=== PATIENT | female | born 1950 | race American Indian/Alaskan Native ===

== ENCOUNTER 2019-07-26 15:56 | Emergency (ER) | payer MEDICARE ==
--- NOTE | 2019-07-26 16:43 | Emergency Department Report ---
HPI - General Chief Complaint: Psych Time Seen by Provider: 07/26/19 16:24 - HPI HPI: 68-year-old female presents to the emergency department via EMS from the lobby of the psychiatric facility [facility], and before that home, for what appears to be a mental health evaluation/clearance. The patient is currently nonverbal and therefore a poor historian. I have not yet been able to speak with the patient's daughter, but the information obtained through triage appears to be that the patient just recently was diagnosed with bipolar disorder after having some erratic behavior. The daughter took her over to [facility] for evaluation and they were told she needed to come to the emergency department for a medical clearance. ED Past Medical Hx - Past Medical History Previous Medical History?: Yes Hx Diabetes: Yes Hx Psychiatric Treatment: Yes (Recently Bipolar) - Surgical History Past Surgical History?: No - Social History Smoking Status: Unknown if ever smoked Substance Use Type: None - Medications Home Medications: Home Medications Medication Instructions Recorded Confirmed Last Taken Type Nitrofurantoin [place]/M-Cryst 100 mg PO Q12HR #12 capsule 07/27/19 Unknown Rx [Macrobid CAP] ED Review of Systems ROS: Stated complaint: PSYCHOSIS Other details as noted in HPI Comment: Unobtainable due to pts medical conditions Physical Exam - Physical Exam Vital Signs: Vital Signs 07/26/19 16:17 Temperature 97.5 F L Pulse Rate 90 Respiratory 20 Rate Blood Pressure 144/89 [Left] O2 Sat by Pulse 96 Oximetry Physical Exam: GENERAL: The patient is well-developed well-nourished. HENT: Normocephalic. Atraumatic. Patient has moist mucous membranes. EYES: Extraocular motions are intact. NECK: Supple. Trachea is midline. CHEST/LUNGS: Clear to auscultation. There is no respiratory distress noted. HEART/CARDIOVASCULAR: Regular. There is no tachycardia. ABDOMEN: Abdomen is soft, nontender. Patient has normal bowel sounds. There is no abdominal distention. SKIN: Skin is warm and dry. NEURO: The patient is not cooperative and is pretending to be unconscious or catatonic. MUSCULOSKELETAL: There is no obvious deformity. There is no evidence of acute injury. ED Course Vital Signs 07/26/19 16:17 Temperature 97.5 F L Pulse Rate 90 Respiratory 20 Rate Blood Pressure 144/89 [Left] O2 Sat by Pulse 96 Oximetry ED Medical Decision Making - Lab Data Result diagrams: 07/26/19 17:00 07/26/19 17:00 - Radiology Data Radiology results: report reviewed CT BRAIN: 07/26/2019 INDICATION / CLINICAL INFORMATION: AMS. COMPARISON: None available. FINDINGS: BRAIN/INTRACRANIAL STRUCTURES: Unenhanced CT images of the brain demonstrate no evidence of acute intracranial abnormality. Ventricles and sulci are normal in size and shape for a patient of this age. There is no evidence of ischemic injury, hemorrhage, or mass. There are no abnormal extra- axial fluid collections. EXTRACRANIAL STRUCTURES: Unremarkable. IMPRESSION: No acute abnormality. - Medical Decision Making This patient presents for a mental health evaluation. At first the patient a ppeared to be unconscious and/or sedated. However when you tried to open her eyelid she would forcibly keep them closed. She was holding a mask in her mouth and once again showed a lot of strength so that the mask could not be pulled out from in between her teeth. Shortly after this, the patient was seen eyes open spontaneously with extraocular motion intact. She was later heard talking and does display some acute psychosis. For all these reasons the patient was made a 1013. A CT scan of the head without contrast did not show any bleed, shift, mass, ischemia, or any other acute process. The patient's labs are mostly unremarkable except for a mild urinary tract infection. Her vital signs have been stable throughout her ED course thus far. She appears medically cleared for psychiatric placement. Critical Care Time: No Critical care attestation.: If time is entered above; I have spent that time in minutes in the direct care of this critically ill patient, excluding procedure time. ED Disposition Clinical Impression: Acute psychosis UTI (urinary tract infection) Qualifiers: Urinary tract infection type: acute cystitis Hematuria presence: without hematuria Qualified Code(s): N30.00 - Acute cystitis without hematuria Disposition: DC/TX-65 PSY HOSP/PSY UNIT Is pt being admited?: No Condition: Stable Prescriptions: Nitrofurantoin [place]/M-Cryst [Macrobid CAP] 100 mg PO Q12HR #12 capsule Time of Disposition: 00:14
--- NOTE | 2019-07-26 17:10 | Cat Scan Report ---
CT BRAIN: 07/26/2019 INDICATION / CLINICAL INFORMATION: AMS. COMPARISON: None available. FINDINGS: BRAIN/INTRACRANIAL STRUCTURES: Unenhanced CT images of the brain demonstrate no evidence of acute int racranial abnormality. Ventricles and sulci are normal in size and shape for a patient of this age. There is no evidence of ischemic injury, hemorrhage, or mass. There are no abnormal extra-axial fluid collections. EXTRACRANIAL STRUCTURES: Unremarkable. IMPRESSION: No acute abnormality. All CT scans at this location are performed using dose reduction to ALARA by means of automated expos ure control. Signer Name: Herbert Pratt MD Signed: 07/26/2019 5:05 PM Workstation Name: [id number]
[2019-07-26 17:35] LABS: Basophils # (Auto) 0.1 K/mm3 (0.0-0.1); Basophils % (Auto) 1.2 % (0.0-1.8); Eosinophils % (Auto) 0.2 % (0.0-4.3); Hematocrit 38.8 % (30.3-42.9); Hemoglobin 12.1 gm/dl (10.1-14.3); Lymphocytes # (Auto) 1.3 K/mm3 (1.2-5.4); Lymphocytes % (Auto) 12.1 % (13.4-35.0); Mean Corpuscular HGB Conc 31 % (30-34); Mean Corpuscular Volume 72 fl (79-97); Monocytes # (Auto) 0.6 K/mm3 (0.0-0.8); Monocytes % (Auto) 5.6 % (0.0-7.3); Platelet Count 442 K/mm3 (140-440); Red Blood Count 5.38 M/mm3 (3.65-5.03); Red Cell Distribution Width 15.5 % (13.2-15.2)
[2019-07-26 17:55] LABS: BUN/Creatinine Ratio 18; Blood Urea Nitrogen 18 mg/dL (7-17); Calcium 10.6 mg/dL (8.4-10.2); Hemolysis Index 25
[2019-07-26 20:33] LABS: Bilirubin,Urine NEG (Negative); Blood,Urine NEG (Negative); Color,Urine Yellow (Yellow); Mucus,Urine 2+ /HPF; Protein,Urine <15 mg/dL mg/dL (Negative); Urobilinogen,Urine < 2.0 mg/dL (<2.0)
[2019-07-26 20:41] LABS: Amphetamine Screen,Urine PRESUMPTIVE NEGATIVE; Benzodiazepines Screen,Urine PRESUMPTIVE NEGATIVE; Cannabinoid Screen,Urine PRESUMPTIVE NEGATIVE; Cocaine Screen,Urine PRESUMPTIVE NEGATIVE; Methadone Screen,Urine PRESUMPTIVE NEGATIVE; Opiate Screen,Urine PRESUMPTIVE NEGATIVE
[2019-07-26] MEDS: NITROFURANTOIN MONOHYD/M-CRYST 100 MG CAP PO SCH (21:46)
[2019-07-27] MEDS ORDERED: ZIPRASIDONE MESYLATE 20 MG VIAL IM ONE (08:07)
[2019-07-27] MEDS ORDERED: ZIPRASIDONE MESYLATE 20 MG VIAL IM PRN (08:09)
[2019-07-27] MEDS ORDERED: WATER FOR INJ Sterile (PF) 10 ML ONE (08:11)
--- NOTE | 2019-07-27 10:16 | Consultation ---
History of Present Illness - Reason for Consult Consult date: 07/27/19 Reason for consult: Psych eval Requesting physician: FLOR HOWELL - Chief Complaint Chief complaint: I am here for the libertarian - History of Present Psychiatric Illness The patient is a 68-year-old female with history of Bipolar disorder who presents to the emergency department with bizarre and erratic behavior. Patient seen by me this morning. She is alert but very confused and completely disoriented. She states that her name is Dr. Gutierrez and that is here to see if the doctor would invite her to the libertarian. She states that the date today is January 14 1975 and the current [place] president is Mikal Vaz. She denies SI/H/AVH/Paranoia. Of note, UA is suggestive of acute UTI and UDS is negative for all substances screened for. PAST PSYCHIATRIC HISTORY: Unknown PAST MEDICAL HISTORY: Family Psychiatric History None reported or documented SOCIAL HISTORY Cannot be reliably obtained from the patient due to her confusion ROS: Constitutional: Negative for weight loss ENT: Negative for stridor Respiratory: Negative for cough or hemoptysis All other systems reviewed and are negative MENTAL STATUS General Appearance and Behavior: ge appropriate, good eye contact, cooperative with questioning and polite Cooperation: Cooperative Psychomotor Behavior: within normal limits Mood: OK Affect and affective range: Congruent with stated mood Thought Process: Fluent/Logical and Goal-directed Thought Content: Delusions Speech: Normal volume and Regular rate and rhythm Intellectual Functioning Impaired Suicidal Ideation: Denies SI Homicidal Ideation: Denies HI Impulse Control: intact Insight and Judgment: Impaired insight and judgment Memory: Impaired Attention: Normal Orientation: alert but confused DIAGNOSES: Acute delirium due to GMC (UTI) Bipolar disorder, manic episode with psychosis RECOMMENDATIONS MEDICATIONS: Risperidone 0.5mg bid for psychosis and delirium Depakote 500mg bid for mood stabilization One time dose of Lorazepam and Haldol for psychotic arousal Risks, benefits and alternatives of medications discussed with the patient, questions answered and consent obtained from patient. PSYCHOTHERAPY: Supportive psychotherapy provided MEDICAL: Per primary team DELIRIUM PRECAUTIONS: Please re-orient patient frequently, keep lights on during the day, and minimize benzodiazepines and opiates as these medications could worsen patient's confusion. 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 Medications and Allergies Allergies Allergy/AdvReac Type Severity Reaction Status Date / Time Sulfa (Sulfonamide Allergy Rash Verified 07/26/19 19:41 Antibiotics) Home Medications Medication Instructions Recorded Confirmed Last Taken Type Nitrofurantoin [place]/M-Cryst 100 mg PO Q12HR #12 capsule 07/27/19 Unknown Rx [Macrobid CAP] Active Meds: Active Medications Nitrofurantoin Macrocrystals (Macrobid) 100 mg PO Q12HR TETO Last Admin: 07/26/19 21:46 Dose: 100 mg Documented by: Ziprasidone (Geodon) 10 mg IM Q12H PRN PRN Reason: Agitation Mental Status Exam - Vital signs Last Vital Signs Temp 98.5 F 07/27/19 08:20 Pulse 84 07/27/19 08:20 Resp 18 07/27/19 08:20 BP 144/95 07/27/19 08:20 Pulse Ox 99 07/27/19 08:20 Results Result Diagrams: 07/26/19 17:00 07/26/19 17:00 Abnormal lab results 07/26/19 07/26/19 07/26/19 Range/Units 17:00 17:00 20:20 WBC 11.1 H (4.5-11.0) K/mm3 RBC 5.38 H (3.65-5.03) M/mm3 MCV 72 L (79-97) fl MCH 23 L (28-32) pg RDW 15.5 H (13.2-15.2) % Plt Count 442 H (140-440) K/mm3 Lymph % (Auto) 12.1 L (13.4-35.0) % Seg Neutrophils % 80.9 H (40.0-70.0) % Seg Neutrophils # 9.0 H (1.8-7.7) K/mm3 Carbon Dioxide 20 L (22-30) mmol/L BUN 18 H (7-17) mg/dL Glucose 113 H (65-100) mg/dL Calcium 10.6 H (8.4-10.2) mg/dL Urine WBC (Auto) 23.0 H (0.0-6.0) /HPF All other labs normal.
[2019-07-27] MEDS: NITROFURANTOIN MONOHYD/M-CRYST 100 MG CAP PO SCH ×2 (10:31→22:41)
[2019-07-27] MEDS ORDERED: LORazepam 2 MG/ML VIAL IM ONE (12:00)
[2019-07-27] MEDS ORDERED: HALOPERIDOL LACTATE 5 MG/1 ML INJ IM ONE (12:00)
[2019-07-27] MEDS ORDERED: DIVALPROEX DR 250 MG TAB PO SCH (22:00)
[2019-07-27] MEDS: DIVALPROEX DR 500 MG TAB PO SCH (22:30)
[2019-07-27] MEDS: MELATONIN 5 MG TAB PO SCH (22:41)
[2019-07-27] MEDS: risperiDONE 0.25 MG TAB PO SCH (22:41)
[2019-07-28] MEDS: DIVALPROEX DR 500 MG TAB PO SCH ×2 (10:22→22:53)
[2019-07-28] MEDS: risperiDONE 0.25 MG TAB PO SCH ×2 (10:22→22:53)
[2019-07-28] MEDS: NITROFURANTOIN MONOHYD/M-CRYST 100 MG CAP PO SCH ×2 (10:22→22:41)
--- NOTE | 2019-07-28 13:35 | Progress Note ---
Subjective - Reason for Consult Consult date: 07/28/19 Reason for consult: Follow up - Chief Complaint Chief complaint: no new complaints SUBJECTIVE: Patient reviewed this morning. She is alert, oriented to but still confused. She is navarrete that she is at a hospital, states current month and year as August 2019; unable to state the date and day; unaware how she got here and unable to give her social history. She thinks that she lives at: [id number] [address]. She is not able to give a name of who to contact for collateral information. She denies SI/HI/AVH/Paranoia. ROS: Constitutional: Negative for weight loss ENT: Negative for stridor Respiratory: Negative for cough or hemoptysis All other systems reviewed and are negative MENTAL STATUS General Appearance and Behavior: age appropriate, good eye contact, cooperative with questioning and polite Cooperation: Cooperative Psychomotor Behavior: within normal limits Mood: OK Affect and affective range: Congruent with stated mood Thought Process: Fluent/Logical and Goal-directed Thought Content: Delusions Speech: Normal volume and Regular rate and rhythm Intellectual Functioning Impaired Suicidal Ideation: Denies SI Homicidal Ideation: Denies HI Impulse Control: intact Insight and Judgment: Impaired insight and judgment Memory: Impaired Attention: Normal Orientation: alert but confused DIAGNOSES: Acute delirium due to GMC (UTI) Bipolar disorder, manic episode with psychosis RECOMMENDATIONS MEDICATIONS: Risperidone 0.5mg bid for psychosis and delirium Depakote 500mg bid for mood stabilizationl Risks, benefits and alternatives of medications discussed with the patient, questions answered and consent obtained from patient. PSYCHOTHERAPY: Supportive psychotherapy provided MEDICAL: Per primary team DELIRIUM PRECAUTIONS: Please re-orient patient frequently, keep lights on during the day, and minimize benzodiazepines and opiates as these medications could worsen patient's confusion. 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 Mental Status Exam - Vital signs Last Vital Signs Temp 98.4 F 07/28/19 02:10 Pulse 81 07/28/19 02:10 Resp 16 07/28/19 02:10 BP 141/76 07/28/19 02:10 Pulse Ox 98 07/28/19 02:10
[2019-07-28] MEDS: MELATONIN 5 MG TAB PO SCH (22:52)
[2019-07-29] MEDS: risperiDONE 0.25 MG TAB PO SCH (10:25)
[2019-07-29] MEDS: NITROFURANTOIN MONOHYD/M-CRYST 100 MG CAP PO SCH ×2 (10:25→22:41)
[2019-07-29] MEDS: DIVALPROEX DR 500 MG TAB PO SCH ×3 (10:25→20:17)
--- NOTE | 2019-07-29 12:29 | Progress Note ---
Subjective - Reason for Consult Consult date: 07/29/19 Reason for consult: Psych follow up - Chief Complaint Chief complaint: no new complaints SUBJECTIVE: Patient reviewed this morning. She is alert, oriented to but still confused. She is tearful, disorganized and appears to be perplexed this morning. u ROS: Constitutional: Negative for weight loss ENT: Negative for stridor Respiratory: Negative for cough or hemoptysis All other systems reviewed and are negative MENTAL STATUS General Appearance and Behavior: age appropriate, good eye contact, cooperative with questioning and polite Cooperation: Cooperative Psychomotor Behavior: within normal limits Mood: OK Affect and affective range: Congruent with stated mood Thought Process: Fluent/Logical and Goal-directed Thought Content: Delusions Speech: Normal volume and Regular rate and rhythm Intellectual Functioning Impaired Suicidal Ideation: Denies SI Homicidal Ideation: Denies HI Impulse Control: intact Insight and Judgment: Impaired insight and judgment Memory: Impaired Attention: Normal Orientation: alert but confused DIAGNOSES: Acute delirium due to GMC (UTI) Bipolar disorder, manic episode with psychosis RECOMMENDATIONS MEDICATIONS: Increase Risperidone to 1mg bid for psychosis and delirium Increase Depakote to 500mg tid for mood stabilization Risks, benefits and alternatives of medications discussed with the patient, questions answered and consent obtained from patient. PSYCHOTHERAPY: Supportive psychotherapy provided MEDICAL: Per primary team DELIRIUM PRECAUTIONS: Please re-orient patient frequently, keep lights on during the day, and minimize benzodiazepines and opiates as these medications could worsen patient's confusion. GI TECHNICIAN: Yes DISPOSITION: Acute inpatient psychiatric hospitalization when medically stable LEGAL STATUS: 1013 FOLLOW-UP: Will follow Please contact with any questions and/or concerns. Mental Status Exam - Vital signs Last Vital Signs Temp 97.6 F 07/29/19 07:38 Pulse 89 07/29/19 07:38 Resp 20 07/29/19 07:38 BP 142/102 07/29/19 07:38 Pulse Ox 99 07/29/19 07:38
[2019-07-29] MEDS ORDERED: risperiDONE 0.25 MG TAB PO SCH (12:30)
[2019-07-29] MEDS: risperiDONE 1 MG TAB PO SCH (22:42)
[2019-07-29] MEDS: MELATONIN 5 MG TAB PO SCH (22:43)
[2019-07-29 22:46] LABS: Basophils # (Auto) 0.2 K/mm3 (0.0-0.1); Basophils % (Auto) 1.8 % (0.0-1.8); Eosinophils # (Auto) 0.1 K/mm3 (0.0-0.4); Eosinophils % (Auto) 1.2 % (0.0-4.3); Hematocrit 37.6 % (30.3-42.9); Hemoglobin 11.9 gm/dl (10.1-14.3); Lymphocytes # (Auto) 1.9 K/mm3 (1.2-5.4); Lymphocytes % (Auto) 21.4 % (13.4-35.0); Mean Corpuscular HGB Conc 32 % (30-34); Mean Corpuscular Volume 72 fl (79-97); Monocytes # (Auto) 0.6 K/mm3 (0.0-0.8); Monocytes % (Auto) 6.6 % (0.0-7.3); Platelet Count 441 K/mm3 (140-440); Red Cell Distribution Width 14.9 % (13.2-15.2)
[2019-07-29 23:10] LABS: Alanine Aminotransferase 14 units/L (7-56); Albumin 4.3 g/dL (3.9-5); BUN/Creatinine Ratio 22; Blood Urea Nitrogen 20 mg/dL (7-17); Calcium 9.5 mg/dL (8.4-10.2); Hemolysis Index 6
[2019-07-30] MEDS: NITROFURANTOIN MONOHYD/M-CRYST 100 MG CAP PO SCH (11:01)
[2019-07-30] MEDS: risperiDONE 1 MG TAB PO SCH (11:01)
[2019-07-30] MEDS: DIVALPROEX DR 500 MG TAB PO SCH (11:01)
[2019-07-30 11:21] VITALS: BP 116/80
== END 2019-07-30 14:17 ==
LOC: EEVIPCON 15:56 → ED 15:56
DX: F23 Brief psychotic disorder (principal); N39.0 Urinary tract infection, site not specified; E11.9 Type 2 diabetes mellitus without complications; F31.9 Bipolar disorder, unspecified; Z88.2 Allergy status to sulfonamides; Z79.899 Other long term (current) drug therapy
CPT/HCPCS: 36415; 70450; 80048; 80053; 80307; 81001; 82140; 82962; 84443; 85025; 87086; 96372; 99285; J3486; 80320; G0480

== ENCOUNTER 2020-07-20 20:23 | Emergency (ER) | payer MEDICARE ==
[2020-07-20 22:42] LABS: Basophils # (Auto) 0.1 K/mm3 (0.0-0.1); Eosinophils # (Auto) 0.1 K/mm3 (0.0-0.4); Eosinophils % (Auto) 0.6 % (0.0-4.3); Hematocrit 38.7 % (30.3-42.9); Hemoglobin 12.3 gm/dl (10.1-14.3); Lymphocytes # (Auto) 2.1 K/mm3 (1.2-5.4); Lymphocytes % (Auto) 19.9 % (13.4-35.0); Mean Corpuscular HGB Conc 32 % (30-34); Mean Corpuscular Volume 75 fl (79-97); Monocytes # (Auto) 0.6 K/mm3 (0.0-0.8); Monocytes % (Auto) 5.7 % (0.0-7.3); Platelet Count 419 K/mm3 (140-440); Red Blood Count 5.14 M/mm3 (3.65-5.03); Red Cell Distribution Width 14.3 % (13.2-15.2)
[2020-07-20] MEDS ORDERED: cloNIDine 0.2 MG TAB PO ONE (22:53)
--- NOTE | 2020-07-20 22:54 | Emergency Department Report ---
HPI - General Chief Complaint: Psych Time Seen by Provider: 07/20/20 22:43 - HPI HPI: Room 16 A The patient is a 69-year-old female brought into the hospital with a chief complaint of "psychotic episode." The patient daughter reports the patient is having a psychotic episode. The patient states she was brought in because her said "I was getting on his nerves." She states that her called her children to take her to the hospital because she was doing things to aggravate him including spilling ink on the floor. Patient denies suicidal homicidal ideation. Patient denies visual or auditory hallucinations. When asked how she is feeling right now the patient states she feels "perfect." ED Past Medical Hx - Past Medical History Previous Medical History?: Yes Hx Diabetes: Yes Hx Psychiatric Treatment: Yes (Recently Bipolar) - Surgical History Past Surgical History?: No - Family History Family history: no significant - Social History Smoking Status: Never Smoker Substance Use Type: None (Denies illicit drug use) - Medications Home Medications: Home Medications Medication Instructions Recorded Confirmed Last Taken Type Divalproex ER [Depakote ER] 500 mg PO BID 30 Days #60 tablet 08/05/19 Unknown Rx risperiDONE [RisperDAL] 2 mg PO BID 30 Days #60 tablet 08/05/19 Unknown Rx traZODone [Desyrel] 50 mg PO QHS PRN #30 tablet 08/05/19 Unknown Rx ED Review of Systems ROS: Stated complaint: MH EVAL Other details as noted in HPI Constitutional: no symptoms reported Eyes: denies: eye pain ENT: denies: throat pain Respiratory: no symptoms reported Cardiovascular: denies: chest pain Endocrine: no symptoms reported Gastrointestinal: denies: abdominal pain Genitourinary: denies: dysuria Musculoskeletal: denies: back pain Neurological: denies: headache Psychiatric: denies: auditory hallucinations, visual hallucinations, homicidal thoughts, suicidal thoughts Physical Exam - Physical Exam Vital Signs: Vital Signs 07/20/20 21:46 Temperature 98.7 F Pulse Rate 103 H Respiratory 22 Rate Blood Pressure 197/110 [Right] O2 Sat by Pulse 97 Oximetry Physical Exam: GENERAL: The patient is well-developed well-nourished female sitting in chair not appearing to be in acute distress. [] HEENT: Normocephalic. Atraumatic. Extraocular motions are intact. Patient has moist mucous membranes. NECK: Supple. Trachea midline CHEST/LUNGS: Clear to auscultation. There is no respiratory distress noted. HEART/CARDIOVASCULAR: Regular. There is no tachycardia. There is no gallop rub or murmur. ABDOMEN: Abdomen is soft, nontender. Patient has normal bowel sounds. There is no abdominal distention. SKIN: There is no rash. There is no edema. There is no diaphoresis. NEURO: The patient is awake, alert, and oriented. The patient is cooperative. The patient has normal speech MUSCULOSKELETAL: There is no evidence of acute injury. ED Course Vital Signs 07/20/20 21:46 Temperature 98.7 F Pulse Rate 103 H Respiratory 22 Rate Blood Pressure 197/110 [Right] O2 Sat by Pulse 97 Oximetry ED Medical Decision Making - Lab Data Result diagrams: 07/20/20 22:14 - Differential Diagnosis Bipolar disorder Critical care attestation.: If time is entered above; I have spent that time in minutes in the direct care of this critically ill patient, excluding procedure time. ED Disposition Condition: Stable
[2020-07-20 23:01] LABS: BUN/Creatinine Ratio 23; Blood Urea Nitrogen 16 mg/dL (7-17); Calcium 10.7 mg/dL (8.4-10.2); Hemolysis Index 2
--- NOTE | 2020-07-21 10:51 | Consultation ---
History of Present Illness - Reason for Consult Consult date: 07/21/20 Reason for consult: Psychosis - History of Present Psychiatric Illness Per ED Note: The patient is a 69-year-old female brought into the hospital with a chief complaint of "psychotic episode." The patient daughter reports the patient is having a psychotic episode. The patient states she was brought in because her said "I was getting on his nerves." She states that her hus band called her children to take her to the hospital because she was doing things to aggravate him including spilling ink on the floor. Patient denies suicidal homicidal ideation. Patient denies visual or auditory hallucinations. When asked how she is feeling right now the patient states she feels "perfect." During my assessment of 69y/o Symone Philip she has her head covered up with linen. She would not remove it. I had to physically remove it. The patient responded "this is your house. Do what you want." She then says "I'm just a guest." It is hard to tell what is going on with the patient. She is sarcastic at times and doesn't answer some questions directly. Her thoughts also appear to be somewhat disorganized. The patient says "I got bit by a pool of ants" when asked why was she brought to the hospital. When asked about hallucinations, she first replies "yes." When asking her what were the hallucinations, she states "I can't hear you." She then pulls on her ear. When asking the patient again, she says "there you go. That's what you said. I didn't say that." When asking the patient about SI/HI, the patient replies "you are talking low again. I can't hear you talking all of that." The patient denies ay past psychiatric history. PAST PSYCHIATRIC HISTORY: Diagnoses: Denies Suicide attempts or Self-harm behavior: Denies Prior psychiatric hospitalizations: Denies Substance Abuse history: Denies Previous psychiatric medications tried: Denies Outpatient treatment: Denies PAST MEDICAL HISTORY: None reported Family Psychiatric History: None reported or documented SOCIAL HISTORY Marital Status: Living Arrangements: with her spouse Employment Status: Disabled Access to guns/weapons: Denies Education: high school History of Abuse: Denies Legal History: Denies REVIEW OF SYSTEMS Constitutional: Negative for weight loss ENT: Negative for stridor Respiratory: Negative for cough or hemoptysis All other systems reviewed and are negative MENTAL STATUS EXAMINATION General Appearance and Behavior: Age appropriate, good hygiene, not wearing appropriate clothes, poor eye contact, polite with questioning. Cooperation: Participating, uncooperative at times Psychomotor Behavior: Psychomotor normal Mood: "okay" Affect and affective range: Congruent with stated mood Thought Process: illogical Speech: Normal tone and pace, nonsensical Thought Content Suicidal Ideation: Denies Homicidal Ideation: Denies Hallucinations: unclear Delusions: None elicited Impulse Control: Limited Insight and Judgment: Impaired insight and judgment Memory: Limited Attention: Divided attention impaired Orientation: A/o x 3 Assessment and Plan (1) Bipolar Current Visit: Yes Status: Acute Treatment Plan 1013 Start Risperidone 0.5mg po BID Start Depakote DR 250mg po BID Start Trazodone 50mg po qhs Sitter: Defer to primary Medical: Per primary Disposition: Recommend acute psychiatric inpatient Will follow. Thank you for this consult. Case staffed with Dr. Yao. Medications and Allergies Allergies Allergy/AdvReac Type Severity Reaction Status Date / Time Sulfa (Sulfonamide Allergy Rash Verified 07/26/19 19:41 Antibiotics) Home Medications Medication Instructions Recorded Confirmed Last Taken Type Divalproex ER [Depakote ER] 500 mg PO BID 30 Days #60 tablet 08/05/19 Unknown Rx risperiDONE [RisperDAL] 2 mg PO BID 30 Days #60 tablet 08/05/19 Unknown Rx traZODone [Desyrel] 50 mg PO QHS PRN #30 tablet 08/05/19 Unknown Rx Mental Status Exam - Vital signs Last Vital Signs Temp 98.5 F 07/21/20 06:25 Pulse 85 07/21/20 06:25 Resp 20 07/21/20 06:25 BP 134/86 07/21/20 06:25 Pulse Ox 98 07/21/20 06:25 Results Result Diagrams: 07/20/20 22:14 07/20/20 22:14 Abnormal lab results 07/20/20 07/20/20 07/20/20 Range/Units 22:14 22:14 22:14 RBC (3.65-5.03) M/mm3 MCV (79-97) fl MCH (28-32) pg Seg Neutrophils % (40.0-70.0) % Seg Neutrophils # (1.8-7.7) K/mm3 Glucose 112 H (65-100) mg/dL Calcium 10.7 H (8.4-10.2) mg/dL Salicylates < 0.3 L (2.8-20.0) mg/dL Acetaminophen 5.0 L (10.0-30.0) ug/mL Valproic Acid (50-100) ug/mL 07/20/20 07/20/20 Range/Units 22:14 22:14 RBC 5.14 H (3.65-5.03) M/mm3 MCV 75 L (79-97) fl MCH 24 L (28-32) pg Seg Neutrophils % 72.8 H (40.0-70.0) % Seg Neutrophils # 7.8 H (1.8-7.7) K/mm3 Glucose (65-100) mg/dL Calcium (8.4-10.2) mg/dL Salicylates (2.8-20.0) mg/dL Acetaminophen (10.0-30.0) ug/mL Valproic Acid < 2.8 L (50-100) ug/mL All other labs normal.
[2020-07-21] MEDS: risperiDONE 0.25 MG TAB PO SCH ×2 (13:53→23:05)
[2020-07-21] MEDS: DIVALPROEX DR 125 MG TAB PO SCH ×2 (13:53→23:05)
[2020-07-21] MEDS: traZODone 50 MG TAB PO SCH (23:05)
--- NOTE | 2020-07-22 09:22 | Progress Note ---
Subjective - Reason for Consult Consult date: 07/22/20 Reason for consult: psychosis - Chief Complaint Chief complaint: Per ED Note: Attempted to collect a covid test from pt. Pt flat refuses. Pt then opened her milk carton and dumped in on the floor and stated she's not eating her breakfast. Breakfast discarded and HK cleaned milk mess. The patient was seen today, she is sitting up with her head covered with her linen. She does not remove it nor answer me when I initially try and speak with her. I remove it to speak with her. She doesn't cooperate much during the interview. She is somewhat paranoid. The patient denies SI/HI or hallucinations of any kind. She says "I'm not inferior." When asking what did she mean by that, she smiles and says "I can't hear you." When asked how did she feel, she leans forward and whispers "wonderful." REVIEW OF SYSTEMS Constitutional: Negative for weight loss ENT: Negative for stridor Respiratory: Negative for cough or hemoptysis All other systems reviewed and are negative MENTAL STATUS EXAMINATION General Appearance and Behavior: Age appropriate, good hygiene, not wearing appropriate clothes, poor eye contact, polite with questioning. Cooperation: Participating, uncooperative at times Psychomotor Behavior: Psychomotor normal Mood: "wonderful" Affect and affective range: Congruent with stated mood Thought Process: illogical Speech: Normal tone and pace, nonsensical Thought Content Suicidal Ideation: Denies Homicidal Ideation: Denies Hallucinations: unclear Delusions: paranoid Impulse Control: Limited Insight and Judgment: Impaired insight and judgment Memory: Limited Attention: Divided attention impaired Orientation: A/o x 3 Assessment and Plan (1) Bipolar Current Visit: Yes Status: Acute Treatment Plan 1013 Increased Risperidone 1mg po BID Increased Depakote DR 250mg po BID Continue Trazodone 50mg po qhs Sitter: Defer to primary Medical: Per primary Disposition: Recommend acute psychiatric inpatient Will follow. Thank you for this consult. Case staffed with Dr. Yao. Mental Status Exam - Vital signs Last Vital Signs Temp 98.6 F 07/21/20 11:09 Pulse 93 H 07/21/20 11:09 Resp 18 07/21/20 22:00 BP 140/83 07/21/20 11:09 Pulse Ox 97 07/21/20 11:09
[2020-07-22] MEDS ORDERED: ZIPRASIDONE MESYLATE 20 MG VIAL IM PRN (11:47)
[2020-07-22] MEDS: DIVALPROEX DR 250 MG TAB PO SCH ×2 (12:44→23:01)
[2020-07-22] MEDS: risperiDONE 1 MG TAB PO SCH ×2 (12:44→23:01)
[2020-07-22] MEDS: traZODone 50 MG TAB PO SCH (23:01)
--- NOTE | 2020-07-23 10:25 | Progress Note ---
Subjective - Reason for Consult Consult date: 07/23/20 Reason for consult: psychosis - Chief Complaint Chief complaint: Per Nurse Note: Asked pt if she would allow me to do a Covid test on her. Pt states no because she had just had one done at her congregational. And further states no because it is against her confucianist. The patient was seen today, she is more calm and cooperative during this assessment. She actually removes linen off her head in order to speak to me. The patient says she's doing "fine, after I saw your kimberly face." She is smiling. She denies hallucinations of any kind. She also denies SI/HI. She says she slept well. The patient is over head cursing the nurse and angry about the COVID test. When I ask her about it, she says "it's against my confucianist. I don't know why they keep asking me to take that. I'm not taking a COVID test." She says "they can get away from me with that." Spoke with the patient's daughter, Margaret. She says the patient painted the kitchen cabinets, wandered and got lost, urinating on herself, and is angry and lashes out. The daughter says the patient will be calm one minute, and lash out the next. She says if she's not having a psychotic break, she is "very sweet, cooperative and nice." She says the behaviors her mother is exhibiting is not her normal self. She says she found out yesterday that her mother dismissed her psychiatrist and stopped her medication from him, and says the psychiatrist says he hasn't written any scripts since January. REVIEW OF SYSTEMS Constitutional: Negative for weight loss ENT: Negative for stridor Respiratory: Negative for cough or hemoptysis All other systems reviewed and are negative MENTAL STATUS EXAMINATION General Appearance and Behavior: Age appropriate, good hygiene, not wearing appropriate clothes, good eye contact, polite with questioning. Cooperation: Participating, uncooperative at times Psychomotor Behavior: Psychomotor normal Mood: "fine" Affect and affective range: Congruent with stated mood Thought Process: illogical Speech: Normal tone and pace, nonsensical Thought Content Suicidal Ideation: Denies Homicidal Ideation: Denies Hallucinations: unclear Delusions: paranoid Impulse Control: Limited Insight and Judgment: Impaired insight and judgment Memory: Limited Attention: Divided attention impaired Orientation: A/o x 3 Assessment and Plan (1) Bipolar Current Visit: Yes Status: Acute Treatment Plan 1013 Continue Risperidone 1mg po BID Continue Depakote DR 250mg po BID Continue Trazodone 50mg po qhs Sitter: Defer to primary Medical: Per primary Disposition: Recommend acute psychiatric inpatient Will follow. Thank you for this consult. Case staffed with Dr. Yao. Mental Status Exam - Vital signs Last Vital Signs Temp 98.7 F 07/22/20 20:08 Pulse 96 H 07/22/20 20:08 Resp 16 07/22/20 22:49 BP 147/93 07/22/20 20:08 Pulse Ox 99 07/22/20 22:49
[2020-07-23] MEDS: DIVALPROEX DR 250 MG TAB PO SCH (11:34)
[2020-07-23] MEDS: risperiDONE 1 MG TAB PO SCH (11:34)
[2020-07-23 11:44] VITALS: BP 121/85
== END 2020-07-23 13:31 ==
LOC: ED 20:23
DX: F29 Unspecified psychosis not due to a substance or known physiological condition (principal); E11.9 Type 2 diabetes mellitus without complications; F31.9 Bipolar disorder, unspecified; Z79.899 Other long term (current) drug therapy; Z88.2 Allergy status to sulfonamides
CPT/HCPCS: 36415; 80048; 80164; 80320; 85025; G0480

== ENCOUNTER 2020-07-23 13:41 | Inpatient (IN) | payer MEDICARE ==
[2020-07-23] MEDS ORDERED: ZIPRASIDONE MESYLATE 20 MG VIAL IM PRN (15:22)
[2020-07-23] MEDS: traZODone 50 MG TAB PO SCH (21:16)
--- NOTE | 2020-07-24 08:04 | Consultation ---
History of Present Illness - Reason for Consult Consult date: 07/24/20 Reason for consult: aggressive - History of Present Psychiatric Illness Per ED Note: The patient is a 69-year-old female brought into the hospital with a chief complaint of "psychotic episode." The patient daughter reports the patient is having a psychotic episode. The patient states she was brought in because her said "I was getting on his nerves." She states that her hu maile called her children to take her to the hospital because she was doing things to aggravate him including spilling ink on the floor. Patient denies suicidal homicidal ideation. Patient denies visual or auditory hallucinations. When asked how she is feeling right now the patient states she feels "perfect." Per Admission Note: Patient is labile. She was observed acting like she was stuffing something in her clothes. Patient stated "I was putting my mk in there". Patient is uncooperative and refusing vs at first. Her clothes and blankets were soaked in urine. Symone Philip is a 69y/o female patient who I first started treatment on in the ER. During my assessment in the ER she had her head covered up with linen. She would not remove it. I had to physically remove it. The patient responded "this is your house. Do what you want." She then stated "I'm just a guest." It was hard to tell what is going on with the patient. She was sarcastic at times and didn't answer some questions directly. Her thoughts were somewhat disorganized. The patient stated "I got bit by a pool of ants" when asked why was she brought to the hospital. When asked about hallucinations, she first replied "yes." When asking her what were the hallucinations, she stated "I can't hear you." She then pulled on her ear. When asking the patient again, she said "there you go. That's what you said. I didn't say that." During my interview with the patient today on [facility], she is lying in bed awake. The tech is also at bedside instructing her to get up for breakfast. The patient is guarded. She appears suspicious. She is quickly looking back and forth at me and the tech. The patient then starts looking around the room. She then stares at me strangely. When asking the patient if she remembered me, she then seemed to be a little more at ease. She replies, "yea, I remember you." She denies SI/HI or hallucinations. PAST PSYCHIATRIC HISTORY: Diagnoses: Denies Suicide attempts or Self-harm behavior: Denies Prior psychiatric hospitalizations: Denies Substance Abuse history: Denies Previous psychiatric medications tried: Denies Outpatient treatment: Denies PAST MEDICAL HISTORY: None reported Family Psychiatric History: None reported or documented SOCIAL HISTORY Marital Status: Living Arrangements: with her spouse Employment Status: Disabled Access to guns/weapons: Denies Education: high school History of Abuse: Denies Legal History: Denies REVIEW OF SYSTEMS Constitutional: Negative for weight loss ENT: Negative for stridor Respiratory: Negative for cough or hemoptysis All other systems reviewed and are negative MENTAL STATUS EXAMINATION General Appearance and Behavior: Age appropriate, good hygiene, not wearing appropriate clothes, poor eye contact, suspicious Cooperation: Participating, uncooperative at times Psychomotor Behavior: Psychomotor normal Mood: "okay" Affect and affective range: Congruent with stated mood Thought Process: illogical Speech: Normal tone and pace, nonsensical Thought Content Suicidal Ideation: Denies Homicidal Ideation: Denies Hallucinations: unclear Delusions: None elicited Impulse Control: Limited Insight and Judgment: Impaired insight and judgment Memory: Limited Attention: Divided attention impaired Orientation: A/o x 3 Assessment and Plan (1) Bipolar Disorder Current Visit: Yes Status: Acute Treatment Plan Patient admitted for inpatient psychiatric evaluation, medication adjustment and close monitoring The patient's behavior, mood, sleep and appetite will be closely monitored. Patient enrolled in individual and group therapeutic sessions and encouraged to attend. Patient provided with a safe and structured environment. Patient's physical health needs will be addressed by the Hospitalist. Hospitalist Consulted Labs including CBC, CMP, Lipid profile and Hemoglobin A1C levels ordered for baseline reference Social Assessment will be completed and the Child Care Teacher will work with patient and family to ensure a suitable and safe disposition Medication adjustment will be made as clinically indicated Risperidone 1mg po BID Depakote DR 250mg po BID Trazodone 50mg po qhs Usual Wellness Tenriism/Preservation: - Start Trazodone 50 mg po QHS & 50 mg po QHS PRN between 10 PM & 2 AM for insomnia - Start Melatonin 5 mg po QHS to promote circadian rhythm - Start [place]-3 for brain health, reduce impulsivity, and as adjunctive treatment for mood disorder, continue upon discharge given overall benefits. - Start B1 prophylaxis with 200 mg po for 5 days The patient agreed on the treatment plan, understood the risk, benefit, alternative treatment, potential consequence of no treatment, and gave informed consent. Initial Certification I certify that the inpatient psychiatric services are required for treatment that could reasonably be expected to improve the patient's condition for agitation and psychosis Estimated days: 5 Post hospital care: primary care provider, psychiatric provider Case staffed with Dr. Yao. Medications and Allergies Allergies Allergy/AdvReac Type Severity Reaction Status Date / Time Sulfa (Sulfonamide Allergy Rash Verified 07/26/19 19:41 Antibiotics) Home Medications Medication Instructions Recorded Confirmed Last Taken Type traZODone [Desyrel] 50 mg PO QHS PRN #30 tablet 08/05/19 07/23/20 Unknown Rx Divalproex ER [Depakote ER] 250 mg PO BID 07/23/20 07/23/20 Unknown History risperiDONE [RisperDAL] 1 mg PO BID 07/23/20 07/23/20 Unknown History Active Meds: Active Medications Trazodone HCl (Trazodone 50 Mg Tab) 50 mg PO QHS [facility] Last Admin: 07/23/20 21:16 Dose: 50 mg Documented by: Ziprasidone (Ziprasidone Mesylate 20 Mg Vial) 10 mg IM Q4H PRN PRN Reason: Agitation Mental Status Exam - Vital signs Last Vital Signs Temp Pulse 114 H 07/23/20 18:23 Resp BP 160/105 07/23/20 18:23 Pulse Ox 98 07/23/20 18:23 Results Abnormal lab results 07/23/20 Range/Units 18:35 POC Glucose 126 H (70-105) mg/dL All other labs normal.
[2020-07-24] MEDS: risperiDONE 1 MG TAB PO SCH ×2 (09:59→21:37)
[2020-07-24] MEDS: DIVALPROEX DR 250 MG TAB PO SCH ×2 (09:59→21:37)
--- NOTE | 2020-07-24 12:05 | Consultation ---
History of Present Illness - Reason for Consult Consult date: 07/24/20 Medical consult Requesting physician: RICK GREENWOOD - History of Present Illness 69-year-old female patient was admitted through emergency room with history of psychotic episode as reported by the daughter Patient was admitted to [facility] by psychiatrist after evaluation, for further management Hospitalist services were requested for medical consult. When I evaluated the patient patient is comfortable pleasant smiling Responding enthusiastically to all the questions Patient denies any chest pain or shortness of breath Denies any headache dizziness weakness or numbness No nausea vomiting or abdominal pain Patient denies any history of hypertension or diabetes mellitus Past History Past Medical History: diabetes (However blood sugars are in the normal range), other (Bipolar) Past Surgical History: No surgical history Social history: denies: smoking, alcohol abuse, prescription drug abuse Family history: no significant family history Medications and Allergies Allergies Allergy/AdvReac Type Severity Reaction Status Date / Time Sulfa (Sulfonamide Allergy Rash Verified 07/26/19 19:41 Antibiotics) Home Medications Medication Instructions Recorded Confirmed Last Taken Type traZODone [Desyrel] 50 mg PO QHS PRN #30 tablet 08/05/19 07/23/20 Unknown Rx Divalproex ER [Depakote ER] 250 mg PO BID 07/23/20 07/23/20 Unknown History risperiDONE [RisperDAL] 1 mg PO BID 07/23/20 07/23/20 Unknown History Active Meds: Active Medications Divalproex Sodium (Divalproex Dr 250 Mg Tab) 250 mg PO BID [facility] Last Admin: 07/24/20 09:59 Dose: 250 mg Documented by: Risperidone (Risperidone 1 Mg Tab) 1 mg PO BID [facility] Last Admin: 07/24/20 09:59 Dose: 1 mg Documented by: Trazodone HCl (Trazodone 50 Mg Tab) 50 mg PO QHS [facility] Last Admin: 07/23/20 21:16 Dose: 50 mg Documented by: Trazodone HCl (Trazodone 50 Mg Tab) 50 mg PO QHS PRN PRN Reason: insomnia Ziprasidone (Ziprasidone Mesylate 20 Mg Vial) 10 mg IM Q4H PRN PRN Reason: Agitation Review of Systems Constitutional: no fever, no chills, no fatigue, no weakness Ears, nose, mouth and throat: no nasal congestion, no nasal discharge Cardiovascular: no chest pain, no orthopnea, no shortness of breath Respiratory: no cough, no shortness of breath Gastrointestinal: no abdominal pain, no nausea, no vomiting Genitourinary Female: no dysuria, no urinary frequency, no hematuria Musculoskeletal: no myalgias, no arthritis Integumentary: no rash, no lesions Neurological: no weakness, no numbness, no seizures, no syncope Psychiatric: other, no anxiety, no depression Endocrine: no cold intolerance, no heat intolerance Hematologic/Lymphatic: no easy bruising, no easy bleeding Allergic/Immunologic: no urticaria, no allergic rhinitis Exam - Constitutional Vitals: Temp Pulse Resp BP Pulse Ox 114 H 160/105 98 07/23/20 18:23 07/23/20 18:23 07/23/20 18:23 General appearance: Present: no acute distress, well-nourished, obese - EENT Eyes: Present: PERRL, EOM intact - Neck Neck: Present: supple, normal ROM - Respiratory Respiratory: bilateral: diminished, negative: rales, rhonchi, wheezing - Cardiovascular Rhythm: regular Heart Sounds: Present: S1 & S2 - Extremities Extremities: no ischemia, No edema - Abdominal General gastrointestinal: Present: soft, non-tender, non-distended, normal bowel sounds - Integumentary Integumentary: Present: clear, warm - Musculoskeletal Musculoskeletal: strength equal bilaterally, generalized weakness - Psychiatric Psychiatric: appropriate mood/affect, cooperative - Neurologic Neurologic: moves all extremities Results - Labs Labs: Abnormal lab results 07/23/20 Range/Units 18:35 POC Glucose 126 H (70-105) mg/dL Assessment and Plan --Acute psychosis; Management per psych Supportive care --History of diabetes mellitus; Blood sugars are within normal range Closely monitor --Obesity; BMI 37.1 Patient needs weight reduction when medically stable --DVT prophylaxis; SCDs while resting Increase ambulation We will closely monitor the patient and adjust the management as needed Thank you for this consultation We will follow the patient along with you as needed Call us with questions or concerns Plan of care reviewed with the patient and her nurse
[2020-07-24] MEDS: traZODone 50 MG TAB PO SCH (21:38)
[2020-07-24] MEDS ORDERED: traZODone 50 MG TAB PO PRN (22:00)
--- NOTE | 2020-07-25 09:17 | Progress Note ---
Subjective Date of service: 07/25/20 Principal diagnosis: Bipolar Subjective Comment: The patient was seen this morning. She appears cheerful and in a great temperament seating on her bed. She says " she is doing well and feels great but i am considering something; I let somebody to remain in my home that I should not do. She was keeping quite between the conversation and said " it is not good to let somebody know your personal issues". She reported her good sleep last night and has a good appetite. Currently, patient denies panic attacks, recurrent nightmares or flashbacks. She denies paranoia, thought interference and no features suggestive of hypomania or amanuel . Also, denies SI/HI or hallucinations of any kind PAST PSYCHIATRIC HISTORY: Diagnoses: Denies Suicide attempts or Self-harm behavior: Denies Prior psychiatric hospitalizations: Denies Substance Abuse history: Denies Previous psychiatric medications tried: Denies Outpatient treatment: Denies PAST MEDICAL HISTORY: None reported Family Psychiatric History: None reported or documented SOCIAL HISTORY Marital Status: Living Arrangements: with her spouse Employment Status: Disabled Access to guns/weapons: Denies Education: high school History of Abuse: Denies Legal History: Denies REVIEW OF SYSTEMS Constitutional: Negative for weight loss ENT: Negative for stridor Respiratory: Negative for cough or hemoptysis All other systems reviewed and are negative MENTAL STATUS EXAMINATION General Appearance and Behavior: Age appropriate, good hygiene, wearing ap propriate clothes, and has good eye contact. Cooperation: Participating and cooperative Psychomotor Behavior: Psychomotor normal Mood: "good" Affect and affective range: Congruent with stated mood Thought Process: illogical Speech: Normal tone and pace, nonsensical Thought Content Suicidal Ideation: Denies Homicidal Ideation: Denies Hallucinations: denies Delusions: denies Impulse Control: Limited Insight and Judgment: Impaired insight and judgment Memory: Limited Attention: Divided attention impaired Orientation: A/o x 3 Assessment and Plan (1) Bipolar Disorder Current Visit: Yes Status: Acute Treatment Plan Patient admitted for inpatient psychiatric evaluation, medication adjustment and close monitoring The patient's behavior, mood, sleep and appetite will be closely monitored. Patient enrolled in individual and group therapeutic sessions and encouraged to attend. Patient provided with a safe and structured environment. Patient's physical health needs will be addressed by the Hospitalist. Hospitalist Consulted Labs including CBC, CMP, Lipid profile and Hemoglobin A1C levels ordered for baseline reference Social Assessment will be completed and the Family And Consumer Education Teacher will work with patient and family to ensure a suitable and safe disposition Medication adjustment will be made as clinically indicated Risperidone 1mg po BID Depakote DR 250mg po BID Trazodone 50mg po qhs Usual Wellness Bahai/Preservation: - Start Trazodone 50 mg po QHS & 50 mg po QHS PRN between 10 PM & 2 AM for insomnia - Start Melatonin 5 mg po QHS to promote circadian rhythm - Start [place]-3 for brain health, reduce impulsivity, and as adjunctive treatment for mood disorder, continue upon discharge given overall benefits. - Start B1 prophylaxis with 200 mg po for 5 days The patient agreed on the treatment plan, understood the risk, benefit, alternative treatment, potential consequence of no treatment, and gave informed consent. Initial Certification I certify that the inpatient psychiatric services are required for treatment that could reasonably be expected to improve the patient's condition for agitation and psychosis Estimated days: 5 Post hospital care: primary care provider, psychiatric provider Case staffed with Dr. Yao. Medications and Allergies Allergies Allergy/AdvReac Type Severity Reaction Status Date / Time Sulfa (Sulfonamide Allergy Rash Verified 07/26/19 19:41 Antibiotics) Home Medications Medication Instructions Recorded Confirmed Last Taken Type traZODone [Desyrel] 50 mg PO QHS PRN #30 tablet 08/05/19 07/23/20 Unknown Rx Divalproex ER [Depakote ER] 250 mg PO BID 07/23/20 07/23/20 Unknown History risperiDONE [RisperDAL] 1 mg PO BID 07/23/20 07/23/20 Unknown History Active Meds: Active Medications Divalproex Sodium (Divalproex Dr 250 Mg Tab) 250 mg PO BID [facility] Last Admin: 07/24/20 21:37 Dose: 250 mg Documented by: Risperidone (Risperidone 1 Mg Tab) 1 mg PO BID [facility] Last Admin: 07/24/20 21:37 Dose: 1 mg Documented by: Trazodone HCl (Trazodone 50 Mg Tab) 50 mg PO QHS [facility] Last Admin: 07/24/20 21:38 Dose: 50 mg Documented by: Trazodone HCl (Trazodone 50 Mg Tab) 50 mg PO QHS PRN PRN Reason: insomnia Ziprasidone (Ziprasidone Mesylate 20 Mg Vial) 10 mg IM Q4H PRN PRN Reason: Agitation Results - Results Labs/Vitals: Laboratory Last Values POC Glucose 99 mg/dL (70-105) 07/24/20 06:27 Last Vital Signs Temp 98.4 F 07/24/20 19:35 Pulse 101 H 07/24/20 19:35 Resp 16 07/24/20 19:35 BP 167/101 07/24/20 19:35 Pulse Ox 98 07/24/20 19:35
[2020-07-25] MEDS: DIVALPROEX DR 250 MG TAB PO SCH ×2 (09:18→21:30)
[2020-07-25] MEDS: risperiDONE 1 MG TAB PO SCH ×2 (09:18→21:30)
[2020-07-25] MEDS: traZODone 50 MG TAB PO SCH (21:32)
--- NOTE | 2020-07-26 08:12 | Progress Note ---
Subjective Date of service: 07/26/20 Principal diagnosis: Bipolar Subjective Comment: Per soda worker Note: soda worker attempted to complete psychoeducational group. PT was in her room. Pt appears to be having active psychosis and responding to internal stimuli as evidenced by talking to herself and responding in an odd manner to child protective services social worker who was asking her to come to group. The patient was seen today, she is sitting on side of her bed strangely staring at the wall. The patient is possible responding to internal stimuli. Her mood appears elevated. She smiles big and says "I'm great. I feel better every day." She denies SI/HI or hallucinations of any kind. Reason for continued inpatient treatment: The patient is observed talking to herself and responding to internal stimuli. REVIEW OF SYSTEMS Constitutional: Negative for weight loss ENT: Negative for stridor Respiratory: Negative for cough or hemoptysis All other systems reviewed and are negative MENTAL STATUS EXAMINATION General Appearance and Behavior: Age appropriate, good hygiene, not wearing appropriate clothes, poor eye contact, suspicious Cooperation: Participating, uncooperative at times Psychomotor Behavior: Psychomotor normal Mood: "great, better every day" Affect and affective range: Congruent with stated mood Thought Process: illogical Speech: Normal tone and pace, nonsensical Thought Content Suicidal Ideation: Denies Homicidal Ideation: Denies Hallucinations: possibly responding to internal stimuli Delusions: None elicited Impulse Control: Limited Insight and Judgment: Impaired insight and judgment Memory: Limited Attention: Divided attention impaired Orientation: A/o x 3 Assessment and Plan (1) Bipolar Disorder Current Visit: Yes Status: Acute Treatment Plan Patient admitted for inpatient psychiatric evaluation, medication adjustment and close monitoring The patient's behavior, mood, sleep and appetite will be closely monitored. Patient enrolled in individual and group therapeutic sessions and encouraged to attend. Patient provided with a safe and structured environment. Patient's physical health needs will be addressed by the Hospitalist. Hospitalist Consulted Labs including CBC, CMP, Lipid profile and Hemoglobin A1C levels ordered for baseline reference Valproic level 07/28 Social Assessment will be completed and the Clinical Research Monitor will work with patient and family to ensure a suitable and safe disposition Medication adjustment will be made as clinically indicated Increase Risperidone 1mg po TID Increase Depakote DR 250mg po TID Continue Trazodone 50mg po qhs Usual Wellness Synagogue/Preservation: - Start Trazodone 50 mg po QHS & 50 mg po QHS PRN between 10 PM & 2 AM for insomnia - Start Melatonin 5 mg po QHS to promote circadian rhythm - Start [place]-3 for brain health, reduce impulsivity, and as adjunctive treatment for mood disorder, continue upon discharge given overall benefits. - Start B1 prophylaxis with 200 mg po for 5 days The patient agreed on the treatment plan, understood the risk, benefit, alternative treatment, potential consequence of no treatment, and gave informed consent. Initial Certification I certify that the inpatient psychiatric services are required for treatment that could reasonably be expected to improve the patient's condition for agitation and psychosis Estimated days: 4 Post hospital care: primary care provider, psychiatric provider Case staffed with Dr. Yao. Medications and Allergies Allergies Allergy/AdvReac Type Severity Reaction Status Date / Time Sulfa (Sulfonamide Allergy Rash Verified 07/26/19 19:41 Antibiotics) Home Medications Medication Instructions Recorded Confirmed Last Taken Type traZODone [Desyrel] 50 mg PO QHS PRN #30 tablet 08/05/19 07/23/20 Unknown Rx Divalproex ER [Depakote ER] 250 mg PO BID 07/23/20 07/23/20 Unknown History risperiDONE [RisperDAL] 1 mg PO BID 07/23/20 07/23/20 Unknown History Active Meds: Active Medications Divalproex Sodium (Divalproex Dr 250 Mg Tab) 250 mg PO BID [facility] Last Admin: 07/25/20 21:30 Dose: 250 mg Documented by: Risperidone (Risperidone 1 Mg Tab) 1 mg PO BID [facility] Last Admin: 07/25/20 21:30 Dose: 1 mg Documented by: Trazodone HCl (Trazodone 50 Mg Tab) 50 mg PO QHS [facility] Last Admin: 07/25/20 21:32 Dose: 50 mg Documented by: Trazodone HCl (Trazodone 50 Mg Tab) 50 mg PO QHS PRN PRN Reason: insomnia Ziprasidone (Ziprasidone Mesylate 20 Mg Vial) 10 mg IM Q4H PRN PRN Reason: Agitation Results - Results Labs/Vitals: Laboratory Last Values POC Glucose 102 mg/dL (70-105) 07/26/20 06:32 Last Vital Signs Temp 98.3 F 07/25/20 19:42 Pulse 96 H 07/25/20 19:42 Resp 16 07/25/20 19:42 BP 151/98 04/13/21 19:42 Pulse Ox 98 07/25/20 19:42
[2020-07-26] MEDS: risperiDONE 1 MG TAB PO SCH ×3 (10:31→20:51)
[2020-07-26] MEDS: DIVALPROEX DR 250 MG TAB PO SCH ×3 (10:31→20:51)
[2020-07-26] MEDS: traZODone 50 MG TAB PO SCH (21:33)
--- NOTE | 2020-07-27 07:58 | Progress Note ---
Subjective Date of service: 07/27/20 Principal diagnosis: Bipolar Subjective Comment: Per Nurse Note: This evening the patient spent in her isolating in her room. She has been cooperative but presents as preoccupied. She interacts only long enough to ask for a need. She sat on the end of her bed staring out into space. Patient is observed making little eye contact as if she does not want to interact. Her appetite is good and she is medication compliant. Will continue to monitor patient for safety. The patient was seen today, she is lying down asleep. She easily arouses. The patient says she's "fine" when asked but she appears withdrawn. She makes poor eye contact. Her disposition is very quiet. She denies SI/HI or hallucinations of any kind. Reason for continued inpatient treatment: The patient is observed talking to herself and responding to internal stimuli. REVIEW OF SYSTEMS Constitutional: Negative for weight loss ENT: Negative for stridor Respiratory: Negative for cough or hemoptysis All other systems reviewed and are negative MENTAL STATUS EXAMINATION General Appearance and Behavior: Age appropriate, good hygiene, not wearing appropriate clothes, poor eye contact, withdrawn Cooperation: Participating Psychomotor Behavior: Psychomotor normal Mood: "fine" Affect and affective range: restricted Thought Process: illogical Speech: Normal tone and pace, nonsensical Thought Content Suicidal Ideation: Denies Homicidal Ideation: Denies Hallucinations: possibly responding to internal stimuli Delusions: None elicited Impulse Control: Limited Insight and Judgment: Impaired insight and judgment Memory: Limited Attention: Divided attention impaired Orientation: A/o x 3 Assessment and Plan (1) Bipolar Disorder Current Visit: Yes Status: Acute Treatment Plan Patient admitted for inpatient psychiatric evaluation, medication adjustment and close monitoring The patient's behavior, mood, sleep and appetite will be closely monitored. Patient enrolled in individual and group therapeutic sessions and encouraged to attend. Patient provided with a safe and structured environment. Patient's physical health needs will be addressed by the Hospitalist. Hospitalist Consulted Labs including CBC, CMP, Lipid profile and Hemoglobin A1C levels ordered for baseline reference Valproic level 07/28 Social Assessment will be completed and the Quality Assurance Monitor Final will work with patient and family to ensure a suitable and safe disposition Medication adjustment will be made as clinically indicated Increase Risperidone 2mg po BID Increase Depakote DR 500mg po BID Continue Trazodone 50mg po qhs Usual Wellness Yazidism/Preservation: - Start Trazodone 50 mg po QHS & 50 mg po QHS PRN between 10 PM & 2 AM for insomnia - Start Melatonin 5 mg po QHS to promote circadian rhythm - Start [place]-3 for brain health, reduce impulsivity, and as adjunctive treatment for mood disorder, continue upon discharge given overall benefits. - Start B1 prophylaxis with 200 mg po for 5 days The patient agreed on the treatment plan, understood the risk, benefit, alternative treatment, potential consequence of no treatment, and gave informed consent. Initial Certification I certify that the inpatient psychiatric services are required for treatment that could reasonably be expected to improve the patient's condition for agitation and psychosis Estimated days: 4 Post hospital care: primary care provider, psychiatric provider Case staffed with Dr. Yao. Medications and Allergies Allergies Allergy/AdvReac Type Severity Reaction Status Date / Time Sulfa (Sulfonamide Allergy Rash Verified 07/26/19 19:41 Antibiotics) Home Medications Medication Instructions Recorded Confirmed Last Taken Type traZODone [Desyrel] 50 mg PO QHS PRN #30 tablet 08/05/19 07/23/20 Unknown Rx Divalproex ER [Depakote ER] 250 mg PO BID 07/23/20 07/23/20 Unknown History risperiDONE [RisperDAL] 1 mg PO BID 07/23/20 07/23/20 Unknown History Active Meds: Active Medications Divalproex Sodium (Divalproex Dr 250 Mg Tab) 250 mg PO TID [facility] Last Admin: 07/26/20 20:51 Dose: 250 mg Documented by: Risperidone (Risperidone 1 Mg Tab) 1 mg PO TID [facility] Last Admin: 07/26/20 20:51 Dose: 1 mg Documented by: Trazodone HCl (Trazodone 50 Mg Tab) 50 mg PO QHS [facility] Last Admin: 07/26/20 21:33 Dose: 50 mg Documented by: Trazodone HCl (Trazodone 50 Mg Tab) 50 mg PO QHS PRN PRN Reason: insomnia Ziprasidone (Ziprasidone Mesylate 20 Mg Vial) 10 mg IM Q4H PRN PRN Reason: Agitation Last Admin: 07/26/20 10:59 Dose: 10 mg Documented by: Results - Results Labs/Vitals: Laboratory Last Values POC Glucose 111 mg/dL (70-105) H 07/26/20 20:06 Last Vital Signs Temp 98.4 F 07/26/20 21:00 Pulse 111 H 07/26/20 21:00 Resp 18 07/26/20 21:00 BP 136/93 07/26/20 21:00 Pulse Ox 99 07/26/20 21:00
[2020-07-27] MEDS: DIVALPROEX DR 500 MG TAB PO SCH ×2 (19:39→21:09)
[2020-07-27] MEDS: risperiDONE 1 MG TAB PO SCH ×3 (19:40→21:10)
[2020-07-27] MEDS: DIVALPROEX DR 250 MG TAB PO SCH (19:41)
[2020-07-27] MEDS: traZODone 50 MG TAB PO SCH (21:09)
--- NOTE | 2020-07-28 07:41 | Progress Note ---
Subjective Date of service: 07/28/20 Principal diagnosis: Bipolar Subjective Comment: Per Psych Nurse: [id number] Pt. bizzare, incongruent, manipulative, tangential speech, easily irritable, angry/happy mood. Resistive to care and refused her meds. Poor hygiene, strong urine smell, pt not wanting to shower. It took hours of persuasion and tactics to get to shower. Will continue to monitor. Psych Progress HPI Patient seen today sitting in the room patient window, when greeted patient responded in a very calm pleasant manner. Asked patient why she is sitting facing the room, patient states because that is what she has been told to do today but does not state who had told her. Patient does appear to be alert and oriented x3. Patient stated that she does not talk to family right now because family and instructed her that she needs to be cooperative and take medication while she is here and she is doing just that. Patient reports sleeping well and eating well, when asked patient why she was not compliant with her medication treatment patient states that is not true because she has been taking all of her medications and this seems to be helping her. Reason for continuing inpatient treatment: Nurses expressed patient uncooperativeness medication noncompliance. Will continue to observe for mood stability Review of Symptoms: Constitutional: Negative for weight loss ENT: Negative for stridor Respiratory: Negative for cough or hemoptysis All other systems reviewed and are negative MENTAL STATUS EXAMINATION General Appearance and Behavior: Age appropriate, good hygiene, wearing appropriate clothes, good eye contact, cooperative polite with questioning. Cooperation: Participating/engaged Psychomotor Behavior: unremarkable and within normal limits Mood: Good Affect and affective range: congruent with mood Thought Process: illogical, Thought Content: Within reality, Speech: Normal volume, Regular rate and rhythm, Intellectual Functioning: Average Suicidal Ideation: Denies SI Homicidal Ideation: Denies HI Impulse Control: Unimpaired Insight and Judgment: Normal insight and judgment, Memory: Normal, Attention: Normal, Orientation: Alert, oriented, Assessment and Plan (1) Bipolar Disorder Current Visit: Yes Status: Acute Treatment Plan Patient admitted for inpatient psychiatric evaluation, medication adjustment and close monitoring The patient's behavior, mood, sleep and appetite will be closely monitored. Patient enrolled in individual and group therapeutic sessions and encouraged to attend. Patient provided with a safe and structured environment. Patient's physical health needs will be addressed by the Hospitalist. Hospitalist Consulted Labs including CBC, CMP, Lipid profile and Hemoglobin A1C levels ordered for baseline reference Social Assessment will be completed and the Optical Designer will work with patient and family to ensure a suitable and safe disposition Medication adjustment will be made as clinically indicated Usual Wellness Zoroastrian/Preservation: - Start Trazodone 50 mg po QHS & 50 mg po QHS PRN between 10 PM & 2 AM for insomnia - Start Melatonin 5 mg po QHS to promote circadian rhythm - Start [place]-3 for brain health, reduce impulsivity, and as adjunctive treatment for mood disorder, continue upon discharge given overall benefits. - Start B1 prophylaxis with 200 mg po for 5 days The patient agreed on the treatment plan, understood the risk, benefit, alternative treatment, potential consequence of no treatment, and gave informed consent. Initial Certification Inpatient psych services: I certify that the inpatient psychiatric services are required for treatment that could reasonably be expected to improve the patient's condition. Estimated days: 4 Post hospital care: primary care provider, psychiatric provider Medications and Allergies Allergies Allergy/AdvReac Type Severity Reaction Status Date / Time Sulfa (Sulfonamide Allergy Rash Verified 07/26/19 19:41 Antibiotics) Home Medications Medication Instructions Recorded Confirmed Last Taken Type traZODone [Desyrel] 50 mg PO QHS PRN #30 tablet 08/05/19 07/23/20 Unknown Rx Divalproex ER [Depakote ER] 250 mg PO BID 07/23/20 07/23/20 Unknown History risperiDONE [RisperDAL] 1 mg PO BID 07/23/20 07/23/20 Unknown History Active Meds: Active Medications Divalproex Sodium (Divalproex Dr 500 Mg Tab) 500 mg PO BID [facility] Last Admin: 07/27/20 21:09 Dose: 500 mg Documented by: Risperidone (Risperidone 1 Mg Tab) 2 mg PO BID [facility] Last Admin: 07/27/20 21:10 Dose: 2 mg Documented by: Trazodone HCl (Trazodone 50 Mg Tab) 50 mg PO QHS [facility] Last Admin: 07/27/20 21:09 Dose: 50 mg Documented by: Trazodone HCl (Trazodone 50 Mg Tab) 50 mg PO QHS PRN PRN Reason: insomnia Ziprasidone (Ziprasidone Mesylate 20 Mg Vial) 10 mg IM Q4H PRN PRN Reason: Agitation Last Admin: 07/26/20 10:59 Dose: 10 mg Documented by: Results - Results Labs/Vitals: Laboratory Last Values POC Glucose 133 mg/dL (70-105) H 07/27/20 12:05 Last Vital Signs Temp 97.7 F 07/27/20 19:59 Pulse 93 H 07/27/20 19:59 Resp 16 07/27/20 19:59 BP 150/90 07/27/20 19:59 Pulse Ox 99 07/27/20 19:59
[2020-07-28] MEDS: risperiDONE 1 MG TAB PO SCH ×2 (11:19→21:36)
[2020-07-28] MEDS: DIVALPROEX DR 500 MG TAB PO SCH ×2 (11:20→21:36)
[2020-07-28] MEDS: traZODone 50 MG TAB PO SCH (21:36)
--- NOTE | 2020-07-29 08:37 | Progress Note ---
Subjective Date of service: 07/29/20 Principal diagnosis: Bipolar Subjective Comment: Per Psych Nurse: [id number] Pt. urinated on herself in bed. Bed linen was changed and she took her shower. Pt remained in her room most of the shift and stated that she does not take her meds in front other people.She attended group in the morning, but did not participate. Staff will continue monitoring pt. Psych Progress HPI Patient seen in room, asked patient about why she was at the activity yesterday but did not participate patient reported because other colleagues feels like angeljeannette and she does not know what that means to her. Patient asked what she would like to do today, patient reported that the plan for today is to do what she has been told to do. I informed patient what reviewed not being told anything what would you like to be patient states that she would like to play games that would involve other people games like checkers, truth or dare and she also asked me to provide some other suggestions for games. Also asked patient why she peed on herself yesterday, patient states that she did that because she thought she was in the restroom and patient appears very sad and prais Reason for continuing inpatient treatment: Illogical thought process, continue medication management and patient shows improvement in response to treatment. Review of Symptoms: Constitutional: Negative for weight loss ENT: Negative for stridor Respiratory: Negative for cough or hemoptysis All other systems reviewed and are negative MENTAL STATUS EXAMINATION General Appearance and Behavior: Age appropriate, good hygiene, wearing appropriate clothes, good eye contact, cooperative polite with questioning. Cooperation: Participating/engaged Psychomotor Behavior: unremarkable and within normal limits Mood: Good Affect and affective range: congruent with mood Thought Process: illogical, Thought Content: Within reality, Speech: Normal volume, Regular rate and rhythm, Intellectual Functioning: Average Suicidal Ideation: Denies SI Homicidal Ideation: Denies HI Impulse Control: Unimpaired Insight and Judgment: Normal insight and judgment, Memory: Normal, Attention: Normal, Orientation: Alert, oriented, Assessment and Plan (1) Bipolar Disorder Current Visit: Yes Status: Acute Treatment Plan Continue current medication Patient admitted for inpatient psychiatric evaluation, medication adjustment and close monitoring The patient's behavior, mood, sleep and appetite will be closely monitored. Patient enrolled in individual and group therapeutic sessions and encouraged to attend. Patient provided with a safe and structured environment. Patient's physical health needs will be addressed by the Hospitalist. Hospitalist Consulted Labs including CBC, CMP, Lipid profile and Hemoglobin A1C levels ordered for baseline reference Social Assessment will be completed and the Import/Export Administrator will work with patient and family to ensure a suitable and safe disposition Medication adjustment will be made as clinically indicated Usual Wellness Jainism/Preservation: - Start Trazodone 50 mg po QHS & 50 mg po QHS PRN between 10 PM & 2 AM for insomnia - Start Melatonin 5 mg po QHS to promote circadian rhythm - Start [place]-3 for brain health, reduce impulsivity, and as adjunctive danelle tment for mood disorder, continue upon discharge given overall benefits. - Start B1 prophylaxis with 200 mg po for 5 days The patient agreed on the treatment plan, understood the risk, benefit, alte rnative treatment, potential consequence of no treatment, and gave informed consent. Initial Certification Inpatient psych services: I certify that the inpatient psychiatric services are required for treatment that could reasonably be expected to improve the patient's condition. Estimated days: 3 Post hospital care: primary care provider, psychiatric provider Medications and Allergies Allergies Allergy/AdvReac Type Severity Reaction Status Date / Time Sulfa (Sulfonamide Allergy Rash Verified 07/26/19 19:41 Antibiotics) Home Medications Medication Instructions Recorded Confirmed Last Taken Type traZODone [Desyrel] 50 mg PO QHS PRN #30 tablet 08/05/19 07/23/20 Unknown Rx Divalproex ER [Depakote ER] 250 mg PO BID 07/23/20 07/23/20 Unknown History risperiDONE [RisperDAL] 1 mg PO BID 07/23/20 07/23/20 Unknown History Active Meds: Active Medications Divalproex Sodium (Divalproex Dr 500 Mg Tab) 500 mg PO BID [facility] Last Admin: 07/28/20 21:36 Dose: 500 mg Documented by: Risperidone (Risperidone 1 Mg Tab) 2 mg PO BID [facility] Last Admin: 07/28/20 21:36 Dose: 2 mg Documented by: Trazodone HCl (Trazodone 50 Mg Tab) 50 mg PO QHS [facility] Last Admin: 07/28/20 21:36 Dose: 50 mg Documented by: Trazodone HCl (Trazodone 50 Mg Tab) 50 mg PO QHS PRN PRN Reason: insomnia Ziprasidone (Ziprasidone Mesylate 20 Mg Vial) 10 mg IM Q4H PRN PRN Reason: Agitation Last Admin: 07/26/20 10:59 Dose: 10 mg Documented by: Results - Results Labs/Vitals: Laboratory Last Values POC Glucose 96 mg/dL (70-105) 07/29/20 06:32 Last Vital Signs Temp 98.4 F 07/28/20 22:00 Pulse 101 H 07/28/20 22:00 Resp 18 07/28/20 22:00 BP 151/97 07/28/20 22:00 Pulse Ox 99 07/28/20 22:00
[2020-07-29] MEDS: risperiDONE 1 MG TAB PO SCH ×2 (10:45→21:21)
[2020-07-29] MEDS: DIVALPROEX DR 500 MG TAB PO SCH ×2 (10:45→21:21)
--- NOTE | 2020-07-29 11:32 | Progress Note ---
Assessment and Plan - Patient Problems (1) Vascular dementia with behavior disturbance Current Visit: Yes Status: Acute Plan to address problem: Verbal prompting, verbal redirection, supportive care, benzodiazepine therapy as clinically indicated. (2) Cerebral atherosclerosis Current Visit: Yes Status: Acute Plan to address problem: Risk factor reduction therapy, antiplatelet therapy as clinically indicated. (3) Diabetes Current Visit: No Status: Acute Plan to address problem: Consistent carbohydrate diet, Accu-Chek, insulin protocol, hypoglycemia protocol (4) Hypertension Current Visit: No Status: Suspected Qualifiers: Hypertension type: essential hypertension Qualified Code(s): I10 - Essential (primary) hypertension Plan to address problem: Monitor blood pressure every shift, continue medical management. History Interval history: 69 YO Female with Vascular Dementia with Behavioral disturbance, Cerebral Atherosclerosis, DM, Bipolar Disorder admitted to [facility] for Psychiatric Stabilization. Pt resting comfortably. Pt denies pain. No reported nursing events. Hospitalist Physical - Constitutional Vitals: Temp Pulse Resp BP Pulse Ox 98.4 F 101 H 18 151/97 99 07/28/20 22:00 07/28/20 22:00 07/28/20 22:00 07/28/20 22:00 07/28/20 22:00 General appearance: Present: no acute distress, well-nourished, obese - EENT Eyes: Present: PERRL ENT: hearing intact - Neck Neck: Present: supple - Respiratory Respiratory effort: normal Respiratory: bilateral: CTA - Cardiovascular Rhythm: regular Heart Sounds: Present: S1 & S2 - Extremities Extremities: no ischemia Peripheral Pulses: within normal limits - Abdominal General gastrointestinal: soft, non-tender, non-distended - Integumentary Integumentary: Present: clear, dry - Psychiatric Psychiatric: cooperative - Neurologic Neurologic: CNII-XII intact Results - Labs Labs: Laboratory Last Values POC Glucose 96 mg/dL (70-105) 07/29/20 06:32 Herman/IV: Voiding Method Toilet Active Medications - Current Medications Current Medications: Generic Name Dose Route Start Last Admin Trade Name Freq PRN Reason Stop Dose Admin Divalproex Sodium 500 mg 07/27/20 10:00 07/29/20 10:[address] 500 Mg Tab PO 500 mg BID TETO Administration Risperidone 2 mg 07/27/20 10:00 07/29/20 10:45 Risperidone 1 Mg Tab PO 2 mg BID TETO Administration Trazodone HCl 50 mg 07/23/20 22:00 07/28/20 21:36 Trazodone 50 Mg Tab PO 50 mg QHS TETO Administration Trazodone HCl 50 mg 07/24/20 22:00 Trazodone 50 Mg Tab PO QHS PRN insomnia Ziprasidone 10 mg 07/23/20 15:22 07/26/20 10:59 Ziprasidone Mesylate 20 Mg Vial IM 10 mg Q4H PRN Administration Agitation Nutrition/Malnutrition Assess - Dietary Evaluation Nutrition/Malnutrition Findings: Nutrition Notes Start: 07/28/20 07:29 Freq: Status: Active Protocol: Document 07/28/20 07:29 LP (Rec: 07/28/20 07:29 LP [id number]) Nutrition Notes Need for Assessment generated from: LOS Initial or Follow up Brief Note Subjective/Other Information Consult for LOS. Pt consuming 100% of meals. Nutrition Intervention Revisit per MD consult or patient Sign Off request:
--- NOTE | 2020-07-29 12:02 | Progress Note ---
Assessment and Plan - Patient Problems (1) Vascular dementia with behavior disturbance Current Visit: Yes Status: Acute Plan to address problem: Verbal prompting, verbal redirection, supportive care, benzodiazepine therapy as clinically indicated. (2) Cerebral atherosclerosis Current Visit: Yes Status: Acute Plan to address problem: Risk factor reduction therapy, antiplatelet therapy as clinically indicated. (3) Diabetes Current Visit: No Status: Acute Plan to address problem: Consistent carbohydrate diet, Accu-Chek, insulin protocol, hypoglycemia protocol (4) Hypertension Current Visit: No Status: Suspected Qualifiers: Hypertension type: essential hypertension Qualified Code(s): I10 - Essential (primary) hypertension Plan to address problem: Monitor blood pressure every shift, continue medical management. History Interval history: 69 YO Female with Vascular Dementia with Behavioral disturbance, Cerebral Atherosclerosis, DM, Bipolar Disorder admitted to [facility] for Psychiatric Stabilization. Pt resting comfortably. Pt denies pain. No reported nursing events. Hospitalist Physical - Constitutional Vitals: Temp Pulse Resp BP Pulse Ox 98.4 F 101 H 18 151/97 99 07/28/20 22:00 07/28/20 22:00 07/28/20 22:00 07/28/20 22:00 07/28/20 22:00 General appearance: Present: no acute distress, well-nourished, obese - EENT Eyes: Present: PERRL, EOM intact ENT: hearing intact - Neck Neck: Present: supple - Respiratory Respiratory: bilateral: CTA - Cardiovascular Rhythm: regular Heart Sounds: Present: S1 & S2 - Extremities Extremities: no ischemia Peripheral Pulses: within normal limits - Abdominal General gastrointestinal: soft, non-tender, non-distended - Integumentary Integumentary: Present: clear, dry - Psychiatric Psychiatric: cooperative - Neurologic Neurologic: CNII-XII intact Results - Labs Labs: Laboratory Last Values POC Glucose 96 mg/dL (70-105) 07/29/20 06:32 Herman/IV: Voiding Method Toilet Active Medications - Current Medications Current Medications: Generic Name Dose Route Start Last Admin Trade Name Freq PRN Reason Stop Dose Admin Divalproex Sodium 500 mg 07/27/20 10:00 07/29/20 10:[address] 500 Mg Tab PO 500 mg BID TETO Administration Risperidone 2 mg 07/27/20 10:00 07/29/20 10:45 Risperidone 1 Mg Tab PO 2 mg BID TETO Administration Trazodone HCl 50 mg 07/23/20 22:00 07/28/20 21:36 Trazodone 50 Mg Tab PO 50 mg QHS TETO Administration Trazodone HCl 50 mg 07/24/20 22:00 Trazodone 50 Mg Tab PO QHS PRN insomnia Ziprasidone 10 mg 07/23/20 15:22 07/26/20 10:59 Ziprasidone Mesylate 20 Mg Vial IM 10 mg Q4H PRN Administration Agitation Nutrition/Malnutrition Assess - Dietary Evaluation Nutrition/Malnutrition Findings: Nutrition Notes Start: 07/28/20 07:29 Freq: Status: Active Protocol: Document 07/28/20 07:29 LP (Rec: 07/28/20 07:29 LP [id number]) Nutrition Notes Need for Assessment generated from: LOS Initial or Follow up Brief Note Subjective/Other Information Consult for LOS. Pt consuming 100% of meals. Nutrition Intervention Revisit per MD consult or patient Sign Off request:
[2020-07-29] MEDS: traZODone 50 MG TAB PO SCH (21:21)
--- NOTE | 2020-07-30 08:44 | Progress Note ---
Subjective Date of service: 07/30/20 Principal diagnosis: Bipolar Subjective Comment: Per Psych Nurse: Patient was isolative to her room most of the day. She came into the activity room this morning but had put jelly all over her body and urinated in the floor. She was directed to go shower and change clothing. Patient complied. She refused breakfast and lunch. She ate part of dinner. She denies si/hi/ah/vh but patient is observed talking to herself while in her room. She refused vital signs but was medication compliant. Will continue to monitor patient for safety Psych Progress HPI Patient in room sleeping, breathing okay, and has pulse but refused to be woken up. Reason for continuing inpatient treatment: Illogical thought process, continue medication management and patient shows improvement in response to treatment. Review of Symptoms: Constitutional: Negative for weight loss ENT: Negative for stridor Respiratory: Negative for cough or hemoptysis All other systems reviewed and are negative MENTAL STATUS EXAMINATION n/a Assessment and Plan (1) Bipolar Disorder Current Visit: Yes Status: Acute Treatment Plan Continue current medication Patient admitted for inpatient psychiatric evaluation, medication adjustment and close monitoring The patient's behavior, mood, sleep and appetite will be closely monitored. Patient enrolled in individual and group therapeutic sessions and encouraged to attend. Patient provided with a safe and structured environment. Patient's physical health needs will be addressed by the Hospitalist. Hospitalist Consulted Labs including CBC, CMP, Lipid profile and Hemoglobin A1C levels ordered for baseline reference Social Assessment will be completed and the Production Specialist will work with patient and family to ensure a suitable and safe disposition Medication adjustment will be made as clinically indicated Usual Wellness Jainism/Preservation: - Start Trazodone 50 mg po QHS & 50 mg po QHS PRN between 10 PM & 2 AM for insomnia - Start Melatonin 5 mg po QHS to promote circadian rhythm - Start Willis-3 for brain health, reduce impulsivity, and as adjunctive treatment for mood disorder, continue upon discharge given overall benefits. - Start B1 prophylaxis with 200 mg po for 5 days The patient agreed on the treatment plan, understood the risk, benefit, alternative treatment, potential consequence of no treatment, and gave informed consent. Initial Certification Inpatient psych services: I certify that the inpatient psychiatric services are required for treatment that could reasonably be expected to improve the patient's condition. Estimated days: 3 Post hospital care: primary care provider, psychiatric provider Medications and Allergies Allergies Allergy/AdvReac Type Severity Reaction Status Date / Time Sulfa (Sulfonamide Allergy Rash Verified 07/26/19 19:41 Antibiotics) Home Medications Medication Instructions Recorded Confirmed Last Taken Type traZODone [Desyrel] 50 mg PO QHS PRN #30 tablet 08/05/19 07/23/20 Unknown Rx Divalproex ER [Depakote ER] 250 mg PO BID 07/23/20 07/23/20 Unknown History risperiDONE [RisperDAL] 1 mg PO BID 07/23/20 07/23/20 Unknown History Active Meds: Active Medications Divalproex Sodium (Divalproex Dr 500 Mg Tab) 500 mg PO BID [facility] Last Admin: 07/29/20 21:21 Dose: 500 mg Documented by: Risperidone (Risperidone 1 Mg Tab) 2 mg PO BID [facility] Last Admin: 07/29/20 21:21 Dose: 2 mg Documented by: Trazodone HCl (Trazodone 50 Mg Tab) 50 mg PO QHS [facility] Last Admin: 07/29/20 21:21 Dose: 50 mg Documented by: Trazodone HCl (Trazodone 50 Mg Tab) 50 mg PO QHS PRN PRN Reason: insomnia Ziprasidone (Ziprasidone Mesylate 20 Mg Vial) 10 mg IM Q4H PRN PRN Reason: Agitation Last Admin: 07/26/20 10:59 Dose: 10 mg Documented by: Results - Results Labs/Vitals: Laboratory Last Values POC Glucose 96 mg/dL (70-105) 07/29/20 06:32 Last Vital Signs Temp 98.0 F 07/29/20 20:27 Pulse 93 H 07/29/20 20:27 Resp 16 07/29/20 20:27 BP 152/92 07/29/20 20:27 Pulse Ox 98 07/29/20 20:27
[2020-07-30 10:06] LABS: Chol/HDL Ratio 3.75 %
[2020-07-30] MEDS: risperiDONE 1 MG TAB PO SCH ×2 (14:35→22:35)
[2020-07-30] MEDS: DIVALPROEX DR 500 MG TAB PO SCH ×2 (14:35→22:05)
[2020-07-30] MEDS: traZODone 50 MG TAB PO SCH (22:04)
--- NOTE | 2020-07-31 07:51 | Progress Note ---
Subjective Date of service: 07/31/20 Principal diagnosis: Bipolar Subjective Comment: Per Psych Nurse: Patient spent the day in her room sleeping. She would awaken at times to refuse food and other care. Her daughter called twice and she would not acknowledge staff when they were relaying the message. Her daughter's message and phone number was placed on her nightstand table and this was explained to patient. She will not engage in conversation. She continues to refuse food. She did take medications with much encouragement. Will continue to monitor patient for safety. Psych Progress HPI Today, patient is up and awake, seen brushing her teeeth and grooming self. WHen asked why she didnt leave her room yesterday, patient states she was feeling nauseas all day. Patient reports feeling wonderful today, shes asked for clean clothings, linens, and wants her room cleaned. Patient says she feels alive today. Denies SI, HI. Reason for continuing inpatient treatment: Depakote levels came back very low, concerned patient not swallowing meds. Illogical thought process, Mood instability with prolonged moment of self withdrawal. Will continue medication management and patient shows improvement in response to treatment. Review of Symptoms: Constitutional: Negative for weight loss ENT: Negative for stridor Respiratory: Negative for cough or hemoptysis All other systems reviewed and are negative MENTAL STATUS EXAMINATION General Appearance and Behavior: Age appropriate, good hygiene, wearing appropriate clothes, good eye contact, cooperative polite with questioning. Cooperation: Participating/engaged Psychomotor Behavior: unremarkable and within normal limits Mood: Good Affect and affective range: congruent with mood Thought Process: illogical, Thought Content: disorganized Speech: Normal volume, Regular rate and rhythm, Intellectual Functioning: Average Suicidal Ideation: Denies SI Homicidal Ideation: Denies HI Impulse Control: Unimpaired Insight and Judgment: impaired Memory: fair Attention: Normal, Orientation: Alert, oriented, Assessment and Plan (1) Bipolar Disorder Current Visit: Yes Status: Acute Treatment Plan Continue current medication Patient admitted for inpatient psychiatric evaluation, medication adjustment and close monitoring The patient's behavior, mood, sleep and appetite will be closely monitored. Patient enrolled in individual and group therapeutic sessions and encouraged to attend. Patient provided with a safe and structured environment. Patient's physical health needs will be addressed by the Hospitalist. Hospitalist Consulted Labs including CBC, CMP, Lipid profile and Hemoglobin A1C levels ordered for baseline reference Social Assessment will be completed and the Tomographic Tech will work with patient and family to ensure a suitable and safe disposition Medication adjustment will be made as clinically indicated Usual Wellness Buddhist/Preservation: - Start Trazodone 50 mg po QHS & 50 mg po QHS PRN between 10 PM & 2 AM for insomnia - Start Melatonin 5 mg po QHS to promote circadian rhythm - Start Kirwin-3 for brain health, reduce impulsivity, and as adjunctive treatment for mood disorder, continue upon discharge given overall benefits. - Start B1 prophylaxis with 200 mg po for 5 days The patient agreed on the treatment plan, understood the risk, benefit, alternative treatment, potential consequence of no treatment, and gave informed consent. Initial Certification Inpatient psych services: I certify that the inpatient psychiatric services are required for treatment that could reasonably be expected to improve the patient's condition. Estimated days: 3 Post hospital care: primary care provider, psychiatric provider Medications and Allergies Allergies Allergy/AdvReac Type Severity Reaction Status Date / Time Sulfa (Sulfonamide Allergy Rash Verified 07/26/19 19:41 Antibiotics) Home Medications Medication Instructions Recorded Confirmed Last Taken Type traZODone [Desyrel] 50 mg PO QHS PRN #30 tablet 08/05/19 07/23/20 Unknown Rx Divalproex ER [Depakote ER] 250 mg PO BID 07/23/20 07/23/20 Unknown History risperiDONE [RisperDAL] 1 mg PO BID 07/23/20 07/23/20 Unknown History Active Meds: Active Medications Divalproex Sodium (Divalproex Dr 500 Mg Tab) 500 mg PO BID [facility] Last Admin: 07/30/20 22:05 Dose: 500 mg Documented by: Risperidone (Risperidone 1 Mg Tab) 2 mg PO BID [facility] Last Admin: 07/30/20 22:35 Dose: 2 mg Documented by: Trazodone HCl (Trazodone 50 Mg Tab) 50 mg PO QHS [facility] Last Admin: 07/30/20 22:04 Dose: 50 mg Documented by: Trazodone HCl (Trazodone 50 Mg Tab) 50 mg PO QHS PRN PRN Reason: insomnia Ziprasidone (Ziprasidone Mesylate 20 Mg Vial) 10 mg IM Q4H PRN PRN Reason: Agitation Last Admin: 07/26/20 10:59 Dose: 10 mg Documented by: Results - Results Labs/Vitals: Laboratory Last Values POC Glucose 96 mg/dL (70-105) 07/30/20 08:00 Hemoglobin A1c 5.5 % (4-6) 07/30/20 09:09 Triglycerides 82 mg/dL (2-149) 07/30/20 09:09 Cholesterol 150 mg/dL (50-199) 07/30/20 09:09 LDL Cholesterol Direct 103 mg/dL (50-130) 07/30/20 09:09 HDL Cholesterol 40 mg/dL (40-59) 07/30/20 09:09 Cholesterol/HDL Ratio 3.75 % 07/30/20 09:09 TSH 1.490 mlU/mL (0.270-4.200) 07/30/20 09:09 Valproic Acid < 2.8 ug/mL (50-100) L 07/30/20 09:09 Last Vital Signs Temp 98.8 F 07/30/20 20:44 Pulse 94 H 07/30/20 20:44 Resp 16 07/30/20 20:44 BP 157/96 07/30/20 20:44 Pulse Ox 97 07/30/20 20:44
[2020-07-31] MEDS: DIVALPROEX DR 500 MG TAB PO SCH ×2 (11:17→21:49)
[2020-07-31] MEDS: risperiDONE 1 MG TAB PO SCH ×2 (11:17→21:49)
--- NOTE | 2020-07-31 21:06 | Progress Note ---
Assessment and Plan - Patient Problems (1) Vascular dementia with behavior disturbance Current Visit: Yes Status: Acute Plan to address problem: Verbal prompting, verbal redirection, supportive care, benzodiazepine therapy as clinically indicated. (2) Cerebral atherosclerosis Current Visit: Yes Status: Acute Plan to address problem: Risk factor reduction therapy, antiplatelet therapy as clinically indicated. (3) Diabetes Current Visit: No Status: Acute Plan to address problem: Consistent carbohydrate diet, Accu-Chek, insulin protocol, hypoglycemia protocol (4) Hypertension Current Visit: No Status: Suspected Qualifiers: Hypertension type: essential hypertension Qualified Code(s): I10 - Essential (primary) hypertension Plan to address problem: Monitor blood pressure every shift, continue medical management. History Interval history: 69 YO Female with Vascular Dementia with Behavioral disturbance, Cerebral Atherosclerosis, DM, Bipolar Disorder admitted to [facility] for Psychiatric Stabilization. Pt resting comfortably. Pt denies pain. No reported nursing events. Hospitalist Physical - Constitutional Vitals: Temp Pulse Resp BP Pulse Ox 98.3 F 92 H 19 139/84 97 07/31/20 11:17 07/31/20 11:17 07/31/20 11:17 07/31/20 11:17 07/31/20 11:17 General appearance: Present: no acute distress, well-nourished, obese - EENT Eyes: Present: PERRL ENT: hearing intact - Neck Neck: Present: supple, normal ROM - Respiratory Respiratory: bilateral: CTA - Cardiovascular Rhythm: regular Heart Sounds: Present: S1 & S2 - Extremities Extremities: no ischemia Peripheral Pulses: within normal limits - Abdominal General gastrointestinal: soft, non-tender, non-distended - Integumentary Integumentary: Present: clear, dry - Psychiatric Psychiatric: appropriate mood/affect, cooperative - Neurologic Neurologic: CNII-XII intact Results - Labs Labs: Laboratory Last Values POC Glucose 141 mg/dL (70-105) H 07/31/20 08:49 Hemoglobin A1c 5.5 % (4-6) 07/30/20 09:09 Triglycerides 82 mg/dL (2-149) 07/30/20 09:09 Cholesterol 150 mg/dL (50-199) 07/30/20 09:09 LDL Cholesterol Direct 103 mg/dL (50-130) 07/30/20 09:09 HDL Cholesterol 40 mg/dL (40-59) 07/30/20 09:09 Cholesterol/HDL Ratio 3.75 % 07/30/20 09:09 TSH 1.490 mlU/mL (0.270-4.200) 07/30/20 09:09 Valproic Acid < 2.8 ug/mL (50-100) L 07/30/20 09:09 Herman/IV: Voiding Method Incontinent Active Medications - Current Medications Current Medications: Generic Name Dose Route Start Last Admin Trade Name Freq PRN Reason Stop Dose Admin Divalproex Sodium 500 mg 07/27/20 10:00 07/31/20 11:[address] 500 Mg Tab PO 500 mg BID TETO Administration Risperidone 2 mg 07/27/20 10:00 07/31/20 11:17 Risperidone 1 Mg Tab PO 2 mg BID TETO Administration Trazodone HCl 50 mg 07/23/20 22:00 07/30/20 22:04 Trazodone 50 Mg Tab PO 50 mg QHS TETO Administration Trazodone HCl 50 mg 07/24/20 22:00 Trazodone 50 Mg Tab PO QHS PRN insomnia Ziprasidone 10 mg 07/23/20 15:22 07/26/20 10:59 Ziprasidone Mesylate 20 Mg Vial IM 10 mg Q4H PRN Administration Agitation Nutrition/Malnutrition Assess - Dietary Evaluation Nutrition/Malnutrition Findings: Nutrition Notes Start: 07/28/20 07:29 Freq: Status: Active Protocol: Document 07/28/20 07:29 LP (Rec: 07/28/20 07:29 LP [id number]) Nutrition Notes Need for Assessment generated from: LOS Initial or Follow up Brief Note Subjective/Other Information Consult for LOS. Pt consuming 100% of meals. Nutrition Intervention Revisit per MD consult or patient Sign Off request:
--- NOTE | 2020-07-31 21:06 | Progress Note ---
Assessment and Plan - Patient Problems (1) Vascular dementia with behavior disturbance Current Visit: Yes Status: Acute Plan to address problem: Verbal prompting, verbal redirection, supportive care, benzodiazepine therapy as clinically indicated. (2) Cerebral atherosclerosis Current Visit: Yes Status: Acute Plan to address problem: Risk factor reduction therapy, antiplatelet therapy as clinically indicated. (3) Diabetes Current Visit: No Status: Acute Plan to address problem: Consistent carbohydrate diet, Accu-Chek, insulin protocol, hypoglycemia protocol (4) Hypertension Current Visit: No Status: Suspected Qualifiers: Hypertension type: essential hypertension Qualified Code(s): I10 - Essential (primary) hypertension Plan to address problem: Monitor blood pressure every shift, continue medical management. History Interval history: 69 YO Female with Vascular Dementia with Behavioral disturbance, Cerebral Atherosclerosis, DM, Bipolar Disorder admitted to [facility] for Psychiatric Stabilization. Pt resting comfortably. Pt denies pain. No reported nursing events. Hospitalist Physical - Constitutional Vitals: Temp Pulse Resp BP Pulse Ox 98.3 F 92 H 19 139/84 97 07/31/20 11:17 07/31/20 11:17 07/31/20 11:17 07/31/20 11:17 07/31/20 11:17 General appearance: Present: no acute distress, well-nourished, obese - EENT Eyes: Present: PERRL ENT: hearing intact - Neck Neck: Present: supple - Respiratory Respiratory effort: normal Respiratory: bilateral: CTA - Cardiovascular Rhythm: regular Heart Sounds: Present: S1 & S2 - Extremities Extremities: no ischemia Peripheral Pulses: within normal limits - Abdominal General gastrointestinal: soft, non-tender, non-distended - Integumentary Integumentary: Present: clear, dry - Psychiatric Psychiatric: cooperative - Neurologic Neurologic: CNII-XII intact Results - Labs Labs: Laboratory Last Values POC Glucose 141 mg/dL (70-105) H 07/31/20 08:49 Hemoglobin A1c 5.5 % (4-6) 07/30/20 09:09 Triglycerides 82 mg/dL (2-149) 07/30/20 09:09 Cholesterol 150 mg/dL (50-199) 07/30/20 09:09 LDL Cholesterol Direct 103 mg/dL (50-130) 07/30/20 09:09 HDL Cholesterol 40 mg/dL (40-59) 07/30/20 09:09 Cholesterol/HDL Ratio 3.75 % 07/30/20 09:09 TSH 1.490 mlU/mL (0.270-4.200) 07/30/20 09:09 Valproic Acid < 2.8 ug/mL (50-100) L 07/30/20 09:09 Herman/IV: Voiding Method Incontinent Active Medications - Current Medications Current Medications: Generic Name Dose Route Start Last Admin Trade Name Freq PRN Reason Stop Dose Admin Divalproex Sodium 500 mg 07/27/20 10:00 07/31/20 11:[address] 500 Mg Tab PO 500 mg BID TETO Administration Risperidone 2 mg 07/27/20 10:00 07/31/20 11:17 Risperidone 1 Mg Tab PO 2 mg BID TETO Administration Trazodone HCl 50 mg 07/23/20 22:00 07/30/20 22:04 Trazodone 50 Mg Tab PO 50 mg QHS TETO Administration Trazodone HCl 50 mg 07/24/20 22:00 Trazodone 50 Mg Tab PO QHS PRN insomnia Ziprasidone 10 mg 07/23/20 15:22 07/26/20 10:59 Ziprasidone Mesylate 20 Mg Vial IM 10 mg Q4H PRN Administration Agitation Nutrition/Malnutrition Assess - Dietary Evaluation Nutrition/Malnutrition Findings: Nutrition Notes Start: 07/28/20 07:29 Freq: Status: Active Protocol: Document 07/28/20 07:29 LP (Rec: 07/28/20 07:29 LP [id number]) Nutrition Notes Need for Assessment generated from: LOS Initial or Follow up Brief Note Subjective/Other Information Consult for LOS. Pt consuming 100% of meals. Nutrition Intervention Revisit per MD consult or patient Sign Off request:
--- NOTE | 2020-07-31 21:07 | Progress Note ---
Assessment and Plan - Patient Problems (1) Vascular dementia with behavior disturbance Current Visit: Yes Status: Acute Plan to address problem: Verbal prompting, verbal redirection, supportive care, benzodiazepine therapy as clinically indicated. (2) Cerebral atherosclerosis Current Visit: Yes Status: Acute Plan to address problem: Risk factor reduction therapy, antiplatelet therapy as clinically indicated. (3) Diabetes Current Visit: No Status: Acute Plan to address problem: Consistent carbohydrate diet, Accu-Chek, insulin protocol, hypoglycemia protocol (4) Hypertension Current Visit: No Status: Suspected Qualifiers: Hypertension type: essential hypertension Qualified Code(s): I10 - Essential (primary) hypertension Plan to address problem: Monitor blood pressure every shift, continue medical management. History Interval history: 69 YO Female with Vascular Dementia with Behavioral disturbance, Cerebral Atherosclerosis, DM, Bipolar Disorder admitted to [facility] for Psychiatric Stabilization. Pt resting comfortably. Pt denies pain. No reported nursing events. Hospitalist Physical - Constitutional Vitals: Temp Pulse Resp BP Pulse Ox 98.3 F 92 H 19 139/84 97 07/31/20 11:17 07/31/20 11:17 07/31/20 11:17 07/31/20 11:17 07/31/20 11:17 General appearance: Present: no acute distress, well-nourished, obese - EENT Eyes: Present: PERRL, EOM intact ENT: hearing intact - Neck Neck: Present: supple - Respiratory Respiratory: bilateral: CTA - Cardiovascular Rhythm: regular Heart Sounds: Present: S1 & S2 - Extremities Extremities: no ischemia Peripheral Pulses: within normal limits - Abdominal General gastrointestinal: soft, non-tender, non-distended - Integumentary Integumentary: Present: clear, dry - Psychiatric Psychiatric: cooperative - Neurologic Neurologic: CNII-XII intact Results - Labs Labs: Laboratory Last Values POC Glucose 141 mg/dL (70-105) H 07/31/20 08:49 Hemoglobin A1c 5.5 % (4-6) 07/30/20 09:09 Triglycerides 82 mg/dL (2-149) 07/30/20 09:09 Cholesterol 150 mg/dL (50-199) 07/30/20 09:09 LDL Cholesterol Direct 103 mg/dL (50-130) 07/30/20 09:09 HDL Cholesterol 40 mg/dL (40-59) 07/30/20 09:09 Cholesterol/HDL Ratio 3.75 % 07/30/20 09:09 TSH 1.490 mlU/mL (0.270-4.200) 07/30/20 09:09 Valproic Acid < 2.8 ug/mL (50-100) L 07/30/20 09:09 Herman/IV: Voiding Method Incontinent Active Medications - Current Medications Current Medications: Generic Name Dose Route Start Last Admin Trade Name Freq PRN Reason Stop Dose Admin Divalproex Sodium 500 mg 07/27/20 10:00 07/31/20 11:[address] 500 Mg Tab PO 500 mg BID TETO Administration Risperidone 2 mg 07/27/20 10:00 07/31/20 11:17 Risperidone 1 Mg Tab PO 2 mg BID TETO Administration Trazodone HCl 50 mg 07/23/20 22:00 07/30/20 22:04 Trazodone 50 Mg Tab PO 50 mg QHS TETO Administration Trazodone HCl 50 mg 07/24/20 22:00 Trazodone 50 Mg Tab PO QHS PRN insomnia Ziprasidone 10 mg 07/23/20 15:22 07/26/20 10:59 Ziprasidone Mesylate 20 Mg Vial IM 10 mg Q4H PRN Administration Agitation Nutrition/Malnutrition Assess - Dietary Evaluation Nutrition/Malnutrition Findings: Nutrition Notes Start: 07/28/20 07:29 Freq: Status: Active Protocol: Document 07/28/20 07:29 LP (Rec: 07/28/20 07:29 LP [id number]) Nutrition Notes Need for Assessment generated from: LOS Initial or Follow up Brief Note Subjective/Other Information Consult for LOS. Pt consuming 100% of meals. Nutrition Intervention Revisit per MD consult or patient Sign Off request:
[2020-07-31] MEDS: traZODone 50 MG TAB PO SCH (21:49)
--- NOTE | 2020-08-01 08:08 | Progress Note ---
Subjective Date of service: 08/01/20 Principal diagnosis: Bipolar Subjective Comment: Per Psych Nurse:[id number] Pt. urinated on herself early in the morning Isolated to self. stays mostly in her room. Refused her lunch, but ate a sandwich and had 2 apple sauces. She did not participate in group, but took her meds. Staff will continue to monitor. Psych Progress HPI Patient in room, starring blank at window, room smells of urine, has towel on head and in back. Patient states she takes her medications and she raised her hand to swell. She states she does not know why she does all the thinks shes does. Reason for continuing inpatient treatment: Depakote levels came back very low, concerned patient not swallowing meds. Instructed nurse to confirm swallow. WIll stop risperdol, switch to Seroquel and increase Valproate. Review of Symptoms: Constitutional: Negative for weight loss ENT: Negative for stridor Respiratory: Negative for cough or hemoptysis All other systems reviewed and are negative MENTAL STATUS EXAMINATION General Appearance and Behavior: Age appropriate, good hygiene, wearing appropriate clothes, good eye contact, cooperative polite with questioning. Cooperation: Participating/engaged Psychomotor Behavior: unremarkable and within normal limits Mood: Good Affect and affective range: congruent with mood Thought Process: illogical, Thought Content: disorganized Speech: Normal volume, Regular rate and rhythm, Intellectual Functioning: Average Suicidal Ideation: Denies SI Homicidal Ideation: Denies HI Impulse Control: Unimpaired Insight and Judgment: impaired Memory: fair Attention: Normal, Orientation: Alert, oriented, Assessment and Plan (1) Bipolar Disorder Current Visit: Yes Status: Acute Treatment Plan Continue current medication Patient admitted for inpatient psychiatric evaluation, medication adjustment and close monitoring The patient's behavior, mood, sleep and appetite will be closely monitored. Patient enrolled in individual and group therapeutic sessions and encouraged to attend. Patient provided with a safe and structured environment. Patient's physical health needs will be addressed by the Hospitalist. Hospitalist Consulted Labs including CBC, CMP, Lipid profile and Hemoglobin A1C levels ordered for baseline reference Social Assessment will be completed and the Environmental Sampler will work with patient and family to ensure a suitable and safe disposition Medication adjustment will be made as clinically indicated Usual Wellness Christianity/Preservation: - Start Trazodone 50 mg po QHS & 50 mg po QHS PRN between 10 PM & 2 AM for insomnia - Start Melatonin 5 mg po QHS to promote circadian rhythm - Start [place]-3 for brain health, reduce impulsivity, and as adjunctive treatment for mood disorder, continue upon discharge given overall benefits. - Start B1 prophylaxis with 200 mg po for 5 days The patient agreed on the treatment plan, understood the risk, benefit, alternative treatment, potential consequence of no treatment, and gave informed consent. Initial Certification Inpatient psych services: I certify that the inpatient psychiatric services are required for treatment that could reasonably be expected to improve the patient's condition. Estimated days: 3 Post hospital care: primary care provider, psychiatric provider Medications and Allergies Allergies Allergy/AdvReac Type Severity Reaction Status Date / Time Sulfa (Sulfonamide Allergy Rash Verified 07/26/19 19:41 Antibiotics) Home Medications Medication Instructions Recorded Confirmed Last Taken Type traZODone [Desyrel] 50 mg PO QHS PRN #30 tablet 08/05/19 07/23/20 Unknown Rx Divalproex ER [Depakote ER] 250 mg PO BID 07/23/20 07/23/20 Unknown History risperiDONE [RisperDAL] 1 mg PO BID 07/23/20 07/23/20 Unknown History Active Meds: Active Medications Divalproex Sodium (Divalproex Dr 500 Mg Tab) 500 mg PO BID [facility] Last Admin: 07/31/20 21:49 Dose: 500 mg Documented by: Risperidone (Risperidone 1 Mg Tab) 2 mg PO BID [facility] Last Admin: 07/31/20 21:49 Dose: 2 mg Documented by: Trazodone HCl (Trazodone 50 Mg Tab) 50 mg PO QHS [facility] Last Admin: 07/31/20 21:49 Dose: 50 mg Documented by: Trazodone HCl (Trazodone 50 Mg Tab) 50 mg PO QHS PRN PRN Reason: insomnia Ziprasidone (Ziprasidone Mesylate 20 Mg Vial) 10 mg IM Q4H PRN PRN Reason: Agitation Last Admin: 07/26/20 10:59 Dose: 10 mg Documented by: Results - Results Labs/Vitals: Laboratory Last Values POC Glucose 141 mg/dL (70-105) H 07/31/20 08:49 Hemoglobin A1c 5.5 % (4-6) 07/30/20 09:09 Triglycerides 82 mg/dL (2-149) 07/30/20 09:09 Cholesterol 150 mg/dL (50-199) 07/30/20 09:09 LDL Cholesterol Direct 103 mg/dL (50-130) 07/30/20 09:09 HDL Cholesterol 40 mg/dL (40-59) 07/30/20 09:09 Cholesterol/HDL Ratio 3.75 % 07/30/20 09:09 TSH 1.490 mlU/mL (0.270-4.200) 07/30/20 09:09 Valproic Acid < 2.8 ug/mL (50-100) L 07/30/20 09:09 Last Vital Signs Temp 98.7 F 07/31/20 20:11 Pulse 92 H 07/31/20 20:11 Resp 15 07/31/20 20:11 BP 123/83 07/31/20 20:11 Pulse Ox 97 07/31/20 20:11
[2020-08-01] MEDS: risperiDONE 1 MG TAB PO SCH (10:17)
[2020-08-01] MEDS: DIVALPROEX DR 500 MG TAB PO SCH ×3 (10:18→20:48)
[2020-08-01] MEDS: QUEtiapine 200 MG TAB PO SCH (21:58)
[2020-08-01] MEDS: traZODone 50 MG TAB PO SCH (21:58)
[2020-08-01] MEDS ORDERED: QUEtiapine 25 MG TAB PO SCH (22:00)
--- NOTE | 2020-08-02 07:48 | Progress Note ---
Subjective Date of service: 08/02/20 Principal diagnosis: Bipolar Subjective Comment: Per Psych Nurse:[id number] Pt. isolated to self, paranoid, suspicious, irritable, resistive, did not attend group or intact with peers. She took her meds and staff ensured pt did not cheek her meds. Staff will continue to monitor. Psych Progress HPI Patient seen in room, sitting and facing towards window. States that she is waiting on staff to employee relations advisor her pants. Patient redirected to pick her pants from floor. Left room for patient to dress up. Patient seen in break room again, she reports having a peaceful night, she said she made sure not to wet the bed because I had told her not to. Patient reports she showered 3 time yesterday. When asked why she is here, patient states she cant remember. she says that "here, there and everywhere has been fair to her. She also notes that what we do here is to conduct, sustain and instruct hard work and she is also here to get better: Reason for continuing inpatient treatment: Patient observed now to [facility], enourage hygive, continues to be delusional Nurses instructed to confirm swallow. continue current medications Review of Symptoms: Constitutional: Negative for weight loss ENT: Negative for stridor Respiratory: Negative for cough or hemoptysis All other systems reviewed and are negative MENTAL STATUS EXAMINATION General Appearance and Behavior: Age appropriate, good hygiene, wearing appropriate clothes, good eye contact, cooperative polite with questioning. Cooperation: Participating/engaged Psychomotor Behavior: unremarkable and within normal limits Mood: Good Affect and affective range: congruent with mood Thought Process: illogical, Thought Content: disorganized Speech: Normal volume, Regular rate and rhythm, Intellectual Functioning: Average Suicidal Ideation: Denies SI Homicidal Ideation: Denies HI Impulse Control: Unimpaired Insight and Judgment: impaired Memory: fair Attention: Normal, Orientation: Alert, oriented, Assessment and Plan (1) Bipolar Disorder Current Visit: Yes Status: Acute Treatment Plan Continue current medication Patient admitted for inpatient psychiatric evaluation, medication adjustment and close monitoring The patient's behavior, mood, sleep and appetite will be closely monitored. Patient enrolled in individual and group therapeutic sessions and encouraged to attend. Patient provided with a safe and structured environment. Patient's physical health needs will be addressed by the Hospitalist. Hospitalist Consulted Labs including CBC, CMP, Lipid profile and Hemoglobin A1C levels ordered for baseline reference Social Assessment will be completed and the Chuck Tender will work with patient and family to ensure a suitable and safe disposition Medication adjustment will be made as clinically indicated Usual Wellness Mormonism/Preservation: - Start Trazodone 50 mg po QHS & 50 mg po QHS PRN between 10 PM & 2 AM for insomnia - Start Melatonin 5 mg po QHS to promote circadian rhythm - Start [place]-3 for brain health, reduce impulsivity, and as adjunctive treatment for mood disorder, continue upon discharge given overall benefits. - Start B1 prophylaxis with 200 mg po for 5 days The patient agreed on the treatment plan, understood the risk, benefit, alternative treatment, potential consequence of no treatment, and gave informed consent. Initial Certification Inpatient psych services: I certify that the inpatient psychiatric services are required for treatment that could reasonably be expected to improve the patient's condition. Estimated days: 3 Post hospital care: primary care provider, psychiatric provider Medications and Allergies Allergies Allergy/AdvReac Type Severity Reaction Status Date / Time Sulfa (Sulfonamide Allergy Rash Verified 07/26/19 19:41 Antibiotics) Home Medications Medication Instructions Recorded Confirmed Last Taken Type traZODone [Desyrel] 50 mg PO QHS PRN #30 tablet 08/05/19 07/23/20 Unknown Rx Divalproex ER [Depakote ER] 250 mg PO BID 07/23/20 07/23/20 Unknown History risperiDONE [RisperDAL] 1 mg PO BID 07/23/20 07/23/20 Unknown History Active Meds: Active Medications Divalproex Sodium (Divalproex Dr 500 Mg Tab) 500 mg PO TID [facility] Last Admin: 08/01/20 20:48 Dose: 500 mg Documented by: Quetiapine Fumarate (Quetiapine 200 Mg Tab) 200 mg PO QHS [facility] Last Admin: 08/01/20 21:58 Dose: 200 mg Documented by: Trazodone HCl (Trazodone 50 Mg Tab) 50 mg PO QHS [facility] Last Admin: 08/01/20 21:58 Dose: 50 mg Documented by: Trazodone HCl (Trazodone 50 Mg Tab) 50 mg PO QHS PRN PRN Reason: insomnia Ziprasidone (Ziprasidone Mesylate 20 Mg Vial) 10 mg IM Q4H PRN PRN Reason: Agitation Last Admin: 07/26/20 10:59 Dose: 10 mg Documented by: Results - Results Labs/Vitals: Laboratory Last Values POC Glucose 102 mg/dL (70-105) 08/01/20 06:04 Hemoglobin A1c 5.5 % (4-6) 07/30/20 09:09 Triglycerides 82 mg/dL (2-149) 07/30/20 09:09 Cholesterol 150 mg/dL (50-199) 07/30/20 09:09 LDL Cholesterol Direct 103 mg/dL (50-130) 07/30/20 09:09 HDL Cholesterol 40 mg/dL (40-59) 07/30/20 09:09 Cholesterol/HDL Ratio 3.75 % 07/30/20 09:09 TSH 1.490 mlU/mL (0.270-4.200) 07/30/20 09:09 Valproic Acid < 2.8 ug/mL (50-100) L 07/30/20 09:09 Last Vital Signs Temp 98.4 F 08/01/20 19:51 Pulse 93 H 08/01/20 19:51 Resp 16 08/01/20 19:51 BP 152/85 08/01/20 19:51 Pulse Ox 100 08/01/20 19:51
[2020-08-02] MEDS: DIVALPROEX DR 500 MG TAB PO SCH ×3 (09:23→20:50)
[2020-08-02] MEDS: QUEtiapine 200 MG TAB PO SCH (21:20)
[2020-08-02] MEDS: traZODone 50 MG TAB PO SCH (21:20)
--- NOTE | 2020-08-03 07:46 | Progress Note ---
Subjective Date of service: 08/03/20 Principal diagnosis: Bipolar Subjective Comment: Per Psych Nurse:pt spent the evening in her room, she is alert and orientedx3, calm and cooperative, able to make needs known, ate snack, medication compliant, mouth cheek done to make sure pt swallowed her medication, poor hygiene, no distress noted, will continue to monitor for safety. Psych Progress HPI Patient seen this AM and advised against holding medication in cheeks, told her its delaying her mental health and overall wellbeing as patient still continue to bed wet and intermittently not care for self. Reason for continuing inpatient treatment: Will switch to liquid depakote. Patient observed now to swallow medications, encourage hygiene, continues to be delusional Nurses instructed to confirm swallow. continue current medications Review of Symptoms: Constitutional: Negative for weight loss ENT: Negative for stridor Respiratory: Negative for cough or hemoptysis All other systems reviewed and are negative MENTAL STATUS EXAMINATION General Appearance and Behavior: Age appropriate, good hygiene, wearing appropriate clothes, good eye contact, cooperative polite with questioning. Cooperation: Participating/engaged Psychomotor Behavior: unremarkable and within normal limits Mood: Good Affect and affective range: congruent with mood Thought Process: illogical, Thought Content: disorganized Speech: Normal volume, Regular rate and rhythm, Intellectual Functioning: Average Suicidal Ideation: Denies SI Homicidal Ideation: Denies HI Impulse Control: Unimpaired Insight and Judgment: impaired Memory: fair Attention: Normal, Orientation: Alert, oriented, Assessment and Plan (1) Bipolar Disorder Current Visit: Yes Status: Acute Treatment Plan Continue current medication Patient admitted for inpatient psychiatric evaluation, medication adjustment and close monitoring The patient's behavior, mood, sleep and appetite will be closely monitored. Patient enrolled in individual and group therapeutic sessions and encouraged to attend. Patient provided with a safe and structured environment. Patient's physical health needs will be addressed by the Hospitalist. Hospitalist Consulted Labs including CBC, CMP, Lipid profile and Hemoglobin A1C levels ordered for baseline reference Social Assessment will be completed and the Seismographer will work with patient and family to ensure a suitable and safe disposition Medication adjustment will be made as clinically indicated Usual Wellness Spiritism/Preservation: - Start Trazodone 50 mg po QHS & 50 mg po QHS PRN between 10 PM & 2 AM for insomnia - Start Melatonin 5 mg po QHS to promote circadian rhythm - Start [place]-3 for brain health, reduce impulsivity, and as adjunctive treatment for mood disorder, continue upon discharge given overall benefits. - Start B1 prophylaxis with 200 mg po for 5 days The patient agreed on the treatment plan, understood the risk, benefit, alternative treatment, potential consequence of no treatment, and gave informed consent. Initial Certification Inpatient psych services: I certify that the inpatient psychiatric services are required for treatment that could reasonably be expected to improve the patient's condition. Estimated days: 2 Post hospital care: primary care provider, psychiatric provider Medications and Allergies Allergies Allergy/AdvReac Type Severity Reaction Status Date / Time Sulfa (Sulfonamide Allergy Rash Verified 07/26/19 19:41 Antibiotics) Home Medications Medication Instructions Recorded Confirmed Last Taken Type traZODone [Desyrel] 50 mg PO QHS PRN #30 tablet 08/05/19 07/23/20 Unknown Rx Divalproex ER [Depakote ER] 250 mg PO BID 07/23/20 07/23/20 Unknown History risperiDONE [RisperDAL] 1 mg PO BID 07/23/20 07/23/20 Unknown History Active Meds: Active Medications Quetiapine Fumarate (Quetiapine 200 Mg Tab) 200 mg PO QHS [facility] Last Admin: 08/02/20 21:20 Dose: 200 mg Documented by: Trazodone HCl (Trazodone 50 Mg Tab) 50 mg PO QHS [facility] Last Admin: 08/02/20 21:20 Dose: 50 mg Documented by: Trazodone HCl (Trazodone 50 Mg Tab) 50 mg PO QHS PRN PRN Reason: insomnia Valproic Acid (Valproic Acid 250 Mg/5 Ml Oral Liqd) 500 mg PO BID [facility] Ziprasidone (Ziprasidone Mesylate 20 Mg Vial) 10 mg IM Q4H PRN PRN Reason: Agitation Last Admin: 07/26/20 10:59 Dose: 10 mg Documented by: Results - Results Labs/Vitals: Laboratory Last Values POC Glucose 100 mg/dL (70-105) 08/03/20 06:28 Hemoglobin A1c 5.5 % (4-6) 07/30/20 09:09 Triglycerides 82 mg/dL (2-149) 07/30/20 09:09 Cholesterol 150 mg/dL (50-199) 07/30/20 09:09 LDL Cholesterol Direct 103 mg/dL (50-130) 07/30/20 09:09 HDL Cholesterol 40 mg/dL (40-59) 07/30/20 09:09 Cholesterol/HDL Ratio 3.75 % 07/30/20 09:09 TSH 1.490 mlU/mL (0.270-4.200) 07/30/20 09:09 Valproic Acid < 2.8 ug/mL (50-100) L 07/30/20 09:09 Last Vital Signs Temp 99.0 F 08/02/20 19:34 Pulse 98 H 08/02/20 19:34 Resp 15 08/02/20 19:34 BP 150/88 08/02/20 19:34 Pulse Ox 99 08/02/20 19:34
[2020-08-03] MEDS: VALPROIC ACID 250 MG/5 ML ORAL LIQD PO SCH ×2 (09:04→21:40)
[2020-08-03] MEDS: QUEtiapine 200 MG TAB PO SCH (21:40)
[2020-08-03] MEDS: traZODone 50 MG TAB PO SCH (21:40)
[2020-08-03] MEDS: dilTIAZem 60 MG TAB PO SCH (22:05)
--- NOTE | 2020-08-04 08:26 | Progress Note ---
Subjective Date of service: 08/04/20 Principal diagnosis: Bipolar Subjective Comment: Per Nurse Note: Last evening the patient spent in the activity room with her peers. She has little interaction with others. When asked questions she is reluctant to answer and her answers are short. She denies si/hi/ah/vh. She refused her snack. She was medication compliant with mouth checks. Overnight the patient rested quietly presenting as sleeping 8 hours. Will continue to monitor patient for safety. The patient was seen today, she is in her room working a puzzle. She says she feels "great" and slept "wonderful." She denies SI/HI or hallucinations of any kind. Reason for continuing inpatient treatment: Switched to liquid depakote. Patient observed now to swallow medications, encourage hygiene, continues to be delusional Nurses instructed to confirm swallow. continue current medications REVIEW OF SYSTEMS Constitutional: Negative for weight loss ENT: Negative for stridor Respiratory: Negative for cough or hemoptysis All other systems reviewed and are negative MENTAL STATUS EXAMINATION General Appearance and Behavior: Age appropriate, good hygiene, not wearing appropriate clothes, poor eye contact, withdrawn Cooperation: Participating Psychomotor Behavior: Psychomotor normal Mood: "great" Affect and affective range: restricted Thought Process: illogical Speech: Normal tone and pace, nonsensical Thought Content Suicidal Ideation: Denies Homicidal Ideation: Denies Hallucinations: possibly responding to internal stimuli Delusions: None elicited Impulse Control: Limited Insight and Judgment: Impaired insight and judgment Memory: Limited Attention: Divided attention impaired Orientation: A/o x 3 Assessment and Plan (1) Bipolar Disorder Current Visit: Yes Status: Acute Treatment Plan Patient admitted for inpatient psychiatric evaluation, medication adjustment and close monitoring The patient's behavior, mood, sleep and appetite will be closely monitored. Patient enrolled in individual and group therapeutic sessions and encouraged to attend. Patient provided with a safe and structured environment. Patient's physical health needs will be addressed by the Hospitalist. Hospitalist Consulted Labs including CBC, CMP, Lipid profile and Hemoglobin A1C levels ordered for baseline reference Social Assessment will be completed and the Inspector Rag Sorting will work with patient and family to ensure a suitable and safe disposition Medication adjustment will be made as clinically indicated Increased Depakote 500mg TID Usual Wellness Nondenominational/Preservation: - Start Trazodone 50 mg po QHS & 50 mg po QHS PRN between 10 PM & 2 AM for insomnia - Start Melatonin 5 mg po QHS to promote circadian rhythm - Start [place]-3 for brain health, reduce impulsivity, and as adjunctive treatment for mood disorder, continue upon discharge given overall benefits. - Start B1 prophylaxis with 200 mg po for 5 days The patient agreed on the treatment plan, understood the risk, benefit, alternative treatment, potential consequence of no treatment, and gave informed consent. Estimated days: 4 Post hospital care: primary care provider, psychiatric provider Case staffed with Dr. Yao. Medications and Allergies Allergies Allergy/AdvReac Type Severity Reaction Status Date / Time Sulfa (Sulfonamide Allergy Rash Verified 07/26/19 19:41 Antibiotics) Home Medications Medication Instructions Recorded Confirmed Last Taken Type traZODone [Desyrel] 50 mg PO QHS PRN #30 tablet 08/05/19 07/23/20 Unknown Rx Divalproex ER [Depakote ER] 250 mg PO BID 07/23/20 07/23/20 Unknown History risperiDONE [RisperDAL] 1 mg PO BID 07/23/20 07/23/20 Unknown History Active Meds: Active Medications Diltiazem HCl (Diltiazem 60 Mg Tab) 60 mg PO BID [facility] Last Admin: 08/03/20 22:05 Dose: 60 mg Documented by: Quetiapine Fumarate (Quetiapine 200 Mg Tab) 200 mg PO QHS [facility] Last Admin: 08/03/20 21:40 Dose: 200 mg Documented by: Trazodone HCl (Trazodone 50 Mg Tab) 50 mg PO QHS [facility] Last Admin: 08/03/20 21:40 Dose: 50 mg Documented by: Trazodone HCl (Trazodone 50 Mg Tab) 50 mg PO QHS PRN PRN Reason: insomnia Valproic Acid (Valproic Acid 250 Mg/5 Ml Oral Liqd) 500 mg PO BID [facility] Last Admin: 08/03/20 21:40 Dose: 500 mg Documented by: Ziprasidone (Ziprasidone Mesylate 20 Mg Vial) 10 mg IM Q4H PRN PRN Reason: Agitation Last Admin: 07/26/20 10:59 Dose: 10 mg Documented by: Results - Results Labs/Vitals: Laboratory Last Values POC Glucose 100 mg/dL (70-105) 08/03/20 06:28 Hemoglobin A1c 5.5 % (4-6) 07/30/20 09:09 Triglycerides 82 mg/dL (2-149) 07/30/20 09:09 Cholesterol 150 mg/dL (50-199) 07/30/20 09:09 LDL Cholesterol Direct 103 mg/dL (50-130) 07/30/20 09:09 HDL Cholesterol 40 mg/dL (40-59) 07/30/20 09:09 Cholesterol/HDL Ratio 3.75 % 07/30/20 09:09 TSH 1.490 mlU/mL (0.270-4.200) 07/30/20 09:09 Valproic Acid < 2.8 ug/mL (50-100) L 07/30/20 09:09 Last Vital Signs Temp 98.6 F 08/03/20 20:57 Pulse 114 H 08/03/20 22:05 Resp 20 08/03/20 20:57 BP 150/102 08/03/20 22:05 Pulse Ox 99 08/03/20 08:13
[2020-08-04] MEDS: dilTIAZem 60 MG TAB PO SCH ×4 (09:11→23:26)
[2020-08-04] MEDS: VALPROIC ACID 250 MG/5 ML ORAL LIQD PO SCH ×3 (09:11→21:15)
[2020-08-04] MEDS ORDERED: cloNIDine TTS 0.2 MG/24 HR PATCH TD SCH (13:00)
[2020-08-04] MEDS: QUEtiapine 200 MG TAB PO SCH ×2 (21:17→23:28)
[2020-08-04] MEDS: traZODone 50 MG TAB PO SCH ×2 (21:17→23:28)
--- NOTE | 2020-08-05 09:31 | Progress Note ---
Subjective Date of service: 08/05/20 Principal diagnosis: Bipolar Subjective Comment: Per Nurse Note: 0702 Received pt. resting in bed with eyes closed, breathing normal, evident by normal rising and falling of chest wall. Pt. selectively mute, not responding to her name. Pt. unkempt, urinates on herself, very strong urine odor on her and in her room. Staff will continue to encourage pt. to take her shower, use the rest room every 2hrs and have a constant good personal hygiene. The patient was seen today, she is acting bizarre. She is sitting on side of bed with her socks and little pieces of paper on the bed. The socks and pieces of paper are arranged on the bed. When asked what she was doing she replies "turn on the light and see." She says "oh I'm wonderful" when asked. The patient denies SI/HI or hallucinations of any kind. Attempted to call the daughter, Naima at [phone] several times to discuss with her the patients progress and treatment options, but the message comes up "the wireless customer is unavailable." Did not have number for the patient's spouse. Mrs. Philip states she doesn't recall it. Reason for continuing inpatient treatment: Switched to liquid depakote. Patient observed now to swallow medications, encourage hygiene, continues to be delusional Nurses instructed to confirm swallow. continue current medications REVIEW OF SYSTEMS Constitutional: Negative for weight loss ENT: Negative for stridor Respiratory: Negative for cough or hemoptysis All other systems reviewed and are negative MENTAL STATUS EXAMINATION General Appearance and Behavior: Age appropriate, good hygiene, not wearing appropriate clothes, poor eye contact, withdrawn Cooperation: Participating Psychomotor Behavior: Psychomotor normal Mood: "great" Affect and affective range: restricted Thought Process: illogical Speech: Normal tone and pace, nonsensical Thought Content Suicidal Ideation: Denies Homicidal Ideation: Denies Hallucinations: possibly responding to internal stimuli Delusions: None elicited Impulse Control: Limited Insight and Judgment: Impaired insight and judgment Memory: Limited Attention: Divided attention impaired Orientation: A/o x 3 Assessment and Plan (1) Bipolar Disorder Current Visit: Yes Status: Acute Treatment Plan Patient admitted for inpatient psychiatric evaluation, medication adjustment and close monitoring The patient's behavior, mood, sleep and appetite will be closely monitored. Patient enrolled in individual and group therapeutic sessions and encouraged to attend. Patient provided with a safe and structured environment. Patient's physical health needs will be addressed by the Hospitalist. Hospitalist Consulted Labs including CBC, CMP, Lipid profile and Hemoglobin A1C levels ordered for baseline reference [place] level 08/06 Social Assessment will be completed and the Counsellors will work with patient and family to ensure a suitable and safe disposition Medication adjustment will be made as clinically indicated Started Risperidone 1mg po BID to establish tolerability with Invega Sustenna Invega Sustenna 1st dose 08/08 Depakote 500mg BID (will adjust based on valproic level) Usual Wellness Sikh/Preservation: - Start Trazodone 50 mg po QHS & 50 mg po QHS PRN between 10 PM & 2 AM for insomnia - Start Melatonin 5 mg po QHS to promote circadian rhythm - Start [place]-3 for brain health, reduce impulsivity, and as adjunctive treatment for mood disorder, continue upon discharge given overall benefits. - Start B1 prophylaxis with 200 mg po for 5 days The patient agreed on the treatment plan, understood the risk, benefit, alternative treatment, potential consequence of no treatment, and gave informed consent. Estimated days: 4 Post hospital care: primary care provider, psychiatric provider Case staffed with Dr. Yao. ider Case staffed with Dr. Yao. Medications and Allergies Allergies Allergy/AdvReac Type Severity Reaction Status Date / Time Sulfa (Sulfonamide Allergy Rash Verified 07/26/19 19:41 Antibiotics) Home Medications Medication Instructions Recorded Confirmed Last Taken Type traZODone [Desyrel] 50 mg PO QHS PRN #30 tablet 08/05/19 07/23/20 Unknown Rx Divalproex ER [Depakote ER] 250 mg PO BID 07/23/20 07/23/20 Unknown History risperiDONE [RisperDAL] 1 mg PO BID 07/23/20 07/23/20 Unknown History Active Meds: Active Medications Clonidine HCl (Clonidine Tts 0.2 Mg/24 Hr Patch) 0.2 mg TD Fr [facility] Last Admin: 08/04/20 17:01 Dose: Not Given Documented by: Diltiazem HCl (Diltiazem 60 Mg Tab) 60 mg PO BID [facility] Last Admin: 08/04/20 23:26 Dose: Not Given Documented by: Quetiapine Fumarate (Quetiapine 200 Mg Tab) 200 mg PO QHS [facility] Last Admin: 04/23/21 23:28 Dose: Not Given Documented by: Risperidone (Risperidone 1 Mg Tab) 1 mg PO BID [facility] Trazodone HCl (Trazodone 50 Mg Tab) 50 mg PO QHS [facility] Last Admin: 08/04/20 23:28 Dose: Not Given Documented by: Trazodone HCl (Trazodone 50 Mg Tab) 50 mg PO QHS PRN PRN Reason: insomnia Valproic Acid (Valproic Acid 250 Mg/5 Ml Oral Liqd) 500 mg PO TID [facility] Last Admin: 08/04/20 21:15 Dose: 500 mg Documented by: Ziprasidone (Ziprasidone Mesylate 20 Mg Vial) 10 mg IM Q4H PRN PRN Reason: Agitation Last Admin: 07/26/20 10:59 Dose: 10 mg Documented by: Results - Results Labs/Vitals: Laboratory Last Values POC Glucose 101 mg/dL (70-105) 08/04/20 07:24 Hemoglobin A1c 5.5 % (4-6) 07/30/20 09:09 Triglycerides 82 mg/dL (2-149) 07/30/20 09:09 Cholesterol 150 mg/dL (50-199) 07/30/20 09:09 LDL Cholesterol Direct 103 mg/dL (50-130) 07/30/20 09:09 HDL Cholesterol 40 mg/dL (40-59) 07/30/20 09:09 Cholesterol/HDL Ratio 3.75 % 07/30/20 09:09 TSH 1.490 mlU/mL (0.270-4.200) 07/30/20 09:09 Valproic Acid < 2.8 ug/mL (50-100) L 07/30/20 09:09 Last Vital Signs Temp 98.2 F 08/04/20 20:18 Pulse 93 H 08/04/20 23:26 Resp 18 08/04/20 20:18 BP 114/85 08/04/20 23:26 Pulse Ox 98 08/04/20 20:18
[2020-08-05] MEDS: risperiDONE 1 MG TAB PO SCH ×2 (11:08→21:19)
[2020-08-05] MEDS: dilTIAZem 60 MG TAB PO SCH ×2 (11:09→21:18)
[2020-08-05] MEDS: VALPROIC ACID 250 MG/5 ML ORAL LIQD PO SCH ×3 (11:14→21:20)
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
[2020-08-05] MEDS: QUEtiapine 200 MG TAB PO SCH (21:19)
[2020-08-05] MEDS: traZODone 50 MG TAB PO SCH (21:19)
--- NOTE | 2020-08-06 09:18 | Progress Note ---
Subjective Date of service: 08/06/20 Principal diagnosis: Bipolar Subjective Comment: Per Nurse Note: 1813 In the morning, pt. was irritable, suspicious, gamey and manipulative. Strong urine smell in her room. She refused her breakfast and her Risperdal, only too the Depakote. Pt then asked for some soup and was very delighted. So her mood changed afterwards, she took a shower, she ate 100% of her lunch and stayed with the other pts and cheerfully interacted with them and with the staff. Will continue to monitor and encourage pt. to participate in her care. The patient was seen today, she is standing at her bed with two pair of pants on. One of them is only to her thighs. The patient is suspicious, and condescending at times. Her bed is wet. She tells me it's orange juice. She is smiling, and somewhat argumentative. She tells me "I can't answer any questions because you are not asking me them correctly." The patient then asks me if I wanted to smell her bed and see if it's urine or orange juice. Reason for continuing inpatient treatment: Switched to liquid depakote. Patient observed now to swallow medications, encourage hygiene, continues to be delusional Nurses instructed to confirm swallow. continue current medications REVIEW OF SYSTEMS Constitutional: Negative for weight loss ENT: Negative for stridor Respiratory: Negative for cough or hemoptysis All other systems reviewed and are negative MENTAL STATUS EXAMINATION General Appearance and Behavior: Age appropriate, good hygiene, not wearing appropriate clothes, poor eye contact, withdrawn Cooperation: Participating Psychomotor Behavior: Psychomotor normal Mood: "great" Affect and affective range: restricted Thought Process: illogical Speech: Normal tone and pace, nonsensical Thought Content Suicidal Ideation: Denies Homicidal Ideation: Denies Hallucinations: possibly responding to internal stimuli Delusions: None elicited Impulse Control: Limited Insight and Judgment: Impaired insight and judgment Memory: Limited Attention: Divided attention impaired Orientation: A/o x 3 Assessment and Plan (1) Bipolar Disorder Current Visit: Yes Status: Acute Treatment Plan Patient admitted for inpatient psychiatric evaluation, medication adjustment and close monitoring The patient's behavior, mood, sleep and appetite will be closely monitored. Patient enrolled in individual and group therapeutic sessions and encouraged to attend. Patient provided with a safe and structured environment. Patient's physical health needs will be addressed by the Hospitalist. Hospitalist Consulted Labs including CBC, CMP, Lipid profile and Hemoglobin A1C levels ordered for baseline reference [place] level 08/06 (not resulted yet) Social Assessment will be completed and the [facility]rette will work with patient and family to ensure a suitable and safe disposition Medication adjustment will be made as clinically indicated Continue Risperidone 1mg po BID to establish tolerability with Sheba Hoover If the patient refuses Risperidone give Haldol injection to prevent delay in treatment per consult with Dr. Yao. Invega Sustenna 1st dose 08/08 Depakote 500mg BID (will adjust based on valproic level) Usual Wellness Taoist/Preservation: - Start Trazodone 50 mg po QHS & 50 mg po QHS PRN between 10 PM & 2 AM for insomnia - Start Melatonin 5 mg po QHS to promote circadian rhythm - Start [place]-3 for brain health, reduce impulsivity, and as adjunctive treatment for mood disorder, continue upon discharge given overall benefits. - Start B1 prophylaxis with 200 mg po for 5 days The patient agreed on the treatment plan, understood the risk, benefit, alternative treatment, potential consequence of no treatment, and gave informed consent. Estimated days: 4 Post hospital care: primary care provider, psychiatric provider Case staffed with Dr. Yao. Medications and Allergies Allergies Allergy/AdvReac Type Severity Reaction Status Date / Time Sulfa (Sulfonamide Allergy Rash Verified 07/26/19 19:41 Antibiotics) Home Medications Medication Instructions Recorded Confirmed Last Taken Type traZODone [Desyrel] 50 mg PO QHS PRN #30 tablet 08/05/19 07/23/20 Unknown Rx Divalproex ER [Depakote ER] 250 mg PO BID 07/23/20 07/23/20 Unknown History risperiDONE [RisperDAL] 1 mg PO BID 07/23/20 07/23/20 Unknown History Active Meds: Active Medications Clonidine HCl (Clonidine Tts 0.2 Mg/24 Hr Patch) 0.2 mg TD Fr [facility] Last Admin: 08/04/20 17:01 Dose: Not Given Documented by: Diltiazem HCl (Diltiazem 60 Mg Tab) 60 mg PO BID [facility] Last Admin: 08/05/20 21:18 Dose: 60 mg Documented by: Haloperidol Lactate (Haloperidol Lactate 5 Mg/1 Ml Inj) 5 mg IM Q6H PRN PRN Reason: Agitation Quetiapine Fumarate (Quetiapine 200 Mg Tab) 200 mg PO QHS [facility] Last Admin: 08/05/20 21:19 Dose: 200 mg Documented by: Risperidone (Risperidone 1 Mg Tab) 1 mg PO BID [facility] Last Admin: 08/05/20 21:19 Dose: 1 mg Documented by: Trazodone HCl (Trazodone 50 Mg Tab) 50 mg PO QHS [facility] Last Admin: 08/05/20 21:19 Dose: 50 mg Documented by: Valproic Acid (Valproic Acid 250 Mg/5 Ml Oral Liqd) 500 mg PO BID [facility] Last Admin: 08/05/20 21:20 Dose: 500 mg Documented by: Results - Results Labs/Vitals: Laboratory Last Values POC Glucose 94 mg/dL (70-105) 08/06/20 06:06 Hemoglobin A1c 5.5 % (4-6) 07/30/20 09:09 Triglycerides 82 mg/dL (2-149) 07/30/20 09:09 Cholesterol 150 mg/dL (50-199) 07/30/20 09:09 LDL Cholesterol Direct 103 mg/dL (50-130) 07/30/20 09:09 HDL Cholesterol 40 mg/dL (40-59) 07/30/20 09:09 Cholesterol/HDL Ratio 3.75 % 07/30/20 09:09 TSH 1.490 mlU/mL (0.270-4.200) 07/30/20 09:09 Valproic Acid < 2.8 ug/mL (50-100) L 07/30/20 09:09 Last Vital Signs Temp 98.2 F 08/05/20 22:00 Pulse 98 H 08/05/20 22:00 Resp 20 08/05/20 22:00 BP 138/77 08/05/20 22:00 Pulse Ox 98 08/05/20 22:00
[2020-08-06] MEDS: VALPROIC ACID 250 MG/5 ML ORAL LIQD PO SCH ×2 (10:49→21:17)
[2020-08-06] MEDS: risperiDONE 1 MG TAB PO SCH ×4 (11:06→21:28)
[2020-08-06] MEDS: dilTIAZem 60 MG TAB PO SCH ×3 (11:07→21:27)
[2020-08-06] MEDS: QUEtiapine 200 MG TAB PO SCH ×2 (21:17→21:28)
[2020-08-06] MEDS: traZODone 50 MG TAB PO SCH ×2 (21:17→21:27)
--- NOTE | 2020-08-07 08:49 | Progress Note ---
Subjective Date of service: 08/07/20 Principal diagnosis: Bipolar Subjective Comment: Per Nurse Note: Last evening the patient isolated to her room. She presents as suspicious and watches staff to make sure medications are not being added to any food or drink. Her presentation is bizarre. She can flip from cooperative to non cooperative quickly. She denies si/hi/ah/vh. Her appetite is good. She only took depakote. She refused the others by spitting them out into her cup of water. When encouraged to try to take them she poured them down into a towel she had wrapped around her shoulders. The patient was calm and cooperative today. She is writing on sheets of paper. She shows me what she is writing. She says they are her grandchildren and different people in her family. She tells me she has a new grandbaby not long born. The patient denies SI/HI or hallucinations of any kind. Attempted to call her daughter, Naima to discuss progress and discharge planning. Call was unsuccessful. Reason for continuing inpatient treatment: Switched to liquid depakote. Patient observed now to swallow medications, encourage hygiene, continues to be delusional Nurses instructed to confirm swallow. continue current medications REVIEW OF SYSTEMS Constitutional: Negative for weight loss ENT: Negative for stridor Respiratory: Negative for cough or hemoptysis All other systems reviewed and are negative MENTAL STATUS EXAMINATION General Appearance and Behavior: Age appropriate, good hygiene, not wearing appropriate clothes, poor eye contact, withdrawn Cooperation: Participating Psychomotor Behavior: Psychomotor normal Mood: "great" Affect and affective range: restricted Thought Process: illogical Speech: Normal tone and pace, nonsensical Thought Content Suicidal Ideation: Denies Homicidal Ideation: Denies Hallucinations: possibly responding to internal stimuli Delusions: None elicited Impulse Control: Limited Insight and Judgment: Impaired insight and judgment Memory: Limited Attention: Divided attention impaired Orientation: A/o x 3 Assessment and Plan (1) Bipolar Disorder Current Visit: Yes Status: Acute Treatment Plan Patient admitted for inpatient psychiatric evaluation, medication adjustment and close monitoring The patient's behavior, mood, sleep and appetite will be closely monitored. Patient enrolled in individual and group therapeutic sessions and encouraged to attend. Patient provided with a safe and structured environment. Patient's physical health needs will be addressed by the Hospitalist. Hospitalist Consulted Labs including CBC, CMP, Lipid profile and Hemoglobin A1C levels ordered for baseline reference [place] level 4 (not resulted yet) Social Assessment will be completed and the Sil[facility] Screen Cutter will work with patient and family to ensure a suitable and safe disposition Medication adjustment will be made as clinically indicated Continue Risperidone 1mg po BID to establish tolerability with Sheba Hoover If the patient refuses Risperidone give Haldol injection to prevent delay in treatment per consult with Dr. Yao. Sheba Hoover 1st dose 08/08 Depakote 500mg BID (will adjust based on valproic level) Usual Wellness Orthodoxy/Preservation: - Start Trazodone 50 mg po QHS & 50 mg po QHS PRN between 10 PM & 2 AM for insomnia - Start Melatonin 5 mg po QHS to promote circadian rhythm - Start [place]-3 for brain health, reduce impulsivity, and as adjunctive treatment for mood disorder, continue upon discharge given overall benefits. - Start B1 prophylaxis with 200 mg po for 5 days The patient agreed on the treatment plan, understood the risk, benefit, alternative treatment, potential consequence of no treatment, and gave informed consent. Estimated days: 4 Post hospital care: primary care provider, psychiatric provider Case staffed with Dr. Yao. Medications and Allergies Allergies Allergy/AdvReac Type Severity Reaction Status Date / Time Sulfa (Sulfonamide Allergy Rash Verified 07/26/19 19:41 Antibiotics) Home Medications Medication Instructions Recorded Confirmed Last Taken Type traZODone [Desyrel] 50 mg PO QHS PRN #30 tablet 08/05/19 07/23/20 Unknown Rx Divalproex ER [Depakote ER] 250 mg PO BID 07/23/20 07/23/20 Unknown History risperiDONE [RisperDAL] 1 mg PO BID 07/23/20 07/23/20 Unknown History Active Meds: Active Medications Clonidine HCl (Clonidine Tts 0.2 Mg/24 Hr Patch) 0.2 mg TD Fr [facility] Last Admin: 08/04/20 17:01 Dose: Not Given Documented by: Diltiazem HCl (Diltiazem 60 Mg Tab) 60 mg PO BID [facility] Last Admin: 08/06/20 21:27 Dose: Not Given Documented by: Haloperidol Lactate (Haloperidol Lactate 5 Mg/1 Ml Inj) 5 mg IM Q6H PRN PRN Reason: Agitation Quetiapine Fumarate (Quetiapine 200 Mg Tab) 200 mg PO QHS [facility] Last Admin: 08/06/20 21:28 Dose: Not Given Documented by: Risperidone (Risperidone 1 Mg Tab) 1 mg PO BID [facility] Last Admin: 08/06/20 21:28 Dose: Not Given Documented by: Trazodone HCl (Trazodone 50 Mg Tab) 50 mg PO QHS [facility] Last Admin: 08/06/20 21:27 Dose: Not Given Documented by: Valproic Acid (Valproic Acid 250 Mg/5 Ml Oral Liqd) 500 mg PO BID [facility] Last Admin: 08/06/20 21:17 Dose: 500 mg Documented by: Results - Results Labs/Vitals: Laboratory Last Values POC Glucose 94 mg/dL (70-105) 08/06/20 06:06 Hemoglobin A1c 5.5 % (4-6) 07/30/20 09:09 Triglycerides 82 mg/dL (2-149) 07/30/20 09:09 Cholesterol 150 mg/dL (50-199) 07/30/20 09:09 LDL Cholesterol Direct 103 mg/dL (50-130) 07/30/20 09:09 HDL Cholesterol 40 mg/dL (40-59) 07/30/20 09:09 Cholesterol/HDL Ratio 3.75 % 07/30/20 09:09 TSH 1.490 mlU/mL (0.270-4.200) 07/30/20 09:09 Valproic Acid < 2.8 ug/mL (50-100) L 07/30/20 09:09 Last Vital Signs Temp 98.0 F 08/06/20 22:00 Pulse 92 H 08/06/20 22:00 Resp 18 08/06/20 22:00 BP 130/93 08/06/20 22:00 Pulse Ox 98 08/06/20 22:00
[2020-08-07] MEDS: VALPROIC ACID 250 MG/5 ML ORAL LIQD PO SCH ×2 (10:25→22:28)
[2020-08-07] MEDS: dilTIAZem 60 MG TAB PO SCH ×2 (10:29→22:29)
[2020-08-07] MEDS: risperiDONE 1 MG TAB PO SCH ×2 (10:29→22:28)
[2020-08-07] MEDS: HALOPERIDOL LACTATE 5 MG/1 ML INJ IM PRN (11:50)
[2020-08-07] MEDS: QUEtiapine 200 MG TAB PO SCH (22:31)
[2020-08-07] MEDS: traZODone 50 MG TAB PO SCH (22:31)
[2020-08-08] MEDS: QUEtiapine 200 MG TAB PO SCH ×2 (00:01→21:25)
[2020-08-08] MEDS: traZODone 50 MG TAB PO SCH ×2 (00:01→21:25)
[2020-08-08] MEDS ORDERED: PALIPERIDONE PALMITATE 234 MG/1.5 ML SYRINGE IM ONE (09:29)
[2020-08-08] MEDS: dilTIAZem 60 MG TAB PO SCH ×2 (09:35→21:23)
[2020-08-08] MEDS: risperiDONE 1 MG TAB PO SCH ×2 (09:38→21:25)
[2020-08-08] MEDS: VALPROIC ACID 250 MG/5 ML ORAL LIQD PO SCH ×2 (09:39→21:23)
--- NOTE | 2020-08-08 09:45 | Progress Note ---
Subjective Date of service: 08/08/20 Principal diagnosis: Bipolar Subjective Comment: Per Nurse Note: Last evening the patient spent isolated to her room. She becomes irritable when asked to participate in her tx. She has a good appetite but continues to refuse most of her medication. She does take the depakote without difficulty. She had to be talked into taking the risperdal and be reminded that she would be given an injection otherwise. When discussing our hopes of helping her get better she denied having any mental health issues. She stated "The medication makes me sick." "I just can't take it." Overnight she rested quietly and presents as sleeping 8 hours. Will continue to monitor patient for safety. The patient was calm and cooperative today. She is lying down and bed. She stands up to talk with me. She is calm, cooperative and pleasant. I informed her that I spoke with her daughter Naima. She smiles at this information. I told her that Naima is ready for her to come home and states she has an appointment tomorrow. The patient smiles and states "I'm so ready to go home." I asked why she refuses her meds sometimes. Mrs. 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 I promise. I want to go home." She denies SI/HI or hallucinations of any kind. Spoke with daughter, Naima today. She says Mrs. Ashby has an appointment with her psychiatrist tomorrow. When informing her that the patient had not been taking her meds and that we wanted to give her an injection when she denies her oral medications. Naima says "no I don't want it forced upon her." She says but she wants to make sure her mother is well and takes her medications. She states she want's to speak with her mother first to assess if she's herself. Reason for continuing inpatient treatment: Switched to liquid depakote. Patient observed now to swallow medications, encourage hygiene, continues to be delusional Nurses instructed to confirm swallow. continue current medications REVIEW OF SYSTEMS Constitutional: Negative for weight loss ENT: Negative for stridor Respiratory: Negative for cough or hemoptysis All other systems reviewed and are negative MENTAL STATUS EXAMINATION General Appearance and Behavior: Age appropriate, good hygiene, not wearing appropriate clothes, poor eye contact, withdrawn Cooperation: Participating Psychomotor Behavior: Psychomotor normal Mood: "great" Affect and affective range: restricted Thought Process: illogical Speech: Normal tone and pace, nonsensical Thought Content Suicidal Ideation: Denies Homicidal Ideation: Denies Hallucinations: possibly responding to internal stimuli Delusions: None elicited Impulse Control: Limited Insight and Judgment: Impaired insight and judgment Memory: Limited Attention: Divided attention impaired Orientation: A/o x 3 Assessment and Plan (1) Bipolar Disorder Current Visit: Yes Status: Acute Treatment Plan Patient admitted for inpatient psychiatric evaluation, medication adjustment and close monitoring The patient's behavior, mood, sleep and appetite will be closely monitored. Patient enrolled in individual and group therapeutic sessions and encouraged to attend. Patient provided with a safe and structured environment. Patient's physical health needs will be addressed by the Hospitalist. Hospitalist Consulted Labs including CBC, CMP, Lipid profile and Hemoglobin A1C levels ordered for baseline reference [place] level 08/06 (not ordered yet) Social Assessment will be completed and the Tree Tapping Laborer will work with patient and family to ensure a suitable and safe disposition Medication adjustment will be made as clinically indicated Continue Risperidone 1mg po BID to establish tolerability with Invega Sustenna If the patient refuses Risperidone give Haldol injection to prevent delay in treatment per consult with Dr. Yao. Invega Sustenna 1st dose 08/08 Depakote 500mg BID (will adjust based on valproic level) No changes toda Usual Wellness Uatsdin/Preservation: - Start Trazodone 50 mg po QHS & 50 mg po QHS PRN between 10 PM & 2 AM for insomnia - Start Melatonin 5 mg po QHS to promote circadian rhythm - Start Agency-3 for brain health, reduce impulsivity, and as adjunctive treatment for mood disorder, continue upon discharge given overall benefits. - Start B1 prophylaxis with 200 mg po for 5 days The patient agreed on the treatment plan, understood the risk, benefit, alternative treatment, potential consequence of no treatment, and gave informed consent. Estimated days: 4 Post hospital care: primary care provider, psychiatric provider Case staffed with Dr. Yao. Medications and Allergies Allergies Allergy/AdvReac Type Severity Reaction Status Date / Time Sulfa (Sulfonamide Allergy Rash Verified 07/26/19 19:41 Antibiotics) Home Medications Medication Instructions Recorded Confirmed Last Taken Type traZODone [Desyrel] 50 mg PO QHS PRN #30 tablet 08/05/19 07/23/20 Unknown Rx Divalproex ER [Depakote ER] 250 mg PO BID 07/23/20 07/23/20 Unknown History risperiDONE [RisperDAL] 1 mg PO BID 07/23/20 07/23/20 Unknown History Active Meds: Active Medications Clonidine HCl (Clonidine Tts 0.2 Mg/24 Hr Patch) 0.2 mg TD Fr [facility] Last Admin: 08/04/20 17:01 Dose: Not Given Documented by: Diltiazem HCl (Diltiazem 60 Mg Tab) 60 mg PO BID [facility] Last Admin: 08/08/20 09:35 Dose: 60 mg Documented by: Haloperidol Lactate (Haloperidol Lactate 5 Mg/1 Ml Inj) 5 mg IM Q6H PRN PRN Reason: Agitation Last Admin: 08/07/20 11:50 Dose: 5 mg Documented by: Quetiapine Fumarate (Quetiapine 200 Mg Tab) 200 mg PO QHS [facility] Last Admin: 08/08/20 00:01 Dose: Not Given Documented by: Risperidone (Risperidone 1 Mg Tab) 1 mg PO BID [facility] Last Admin: 08/08/20 09:38 Dose: 1 mg Documented by: Trazodone HCl (Trazodone 50 Mg Tab) 50 mg PO QHS [facility] Last Admin: 08/08/20 00:01 Dose: Not Given Documented by: Valproic Acid (Valproic Acid 250 Mg/5 Ml Oral Liqd) 500 mg PO BID [facility] Last Admin: 08/08/20 09:39 Dose: 500 mg Documented by: Results - Results Labs/Vitals: Laboratory Last Values POC Glucose 85 mg/dL (70-105) 08/07/20 06:21 Hemoglobin A1c 5.5 % (4-6) 07/30/20 09:09 Triglycerides 82 mg/dL (2-149) 07/30/20 09:09 Cholesterol 150 mg/dL (50-199) 07/30/20 09:09 LDL Cholesterol Direct 103 mg/dL (50-130) 07/30/20 09:09 HDL Cholesterol 40 mg/dL (40-59) 07/30/20 09:09 Cholesterol/HDL Ratio 3.75 % 07/30/20 09:09 TSH 1.490 mlU/mL (0.270-4.200) 07/30/20 09:09 Valproic Acid < 2.8 ug/mL (50-100) L 07/30/20 09:09 Last Vital Signs Temp 98.0 F 08/08/20 08:22 Pulse 83 08/08/20 08:22 Resp 18 08/08/20 08:22 BP 140/93 08/08/20 08:22 Pulse Ox 98 08/08/20 08:22
--- NOTE | 2020-08-08 14:54 | Progress Note ---
Assessment and Plan - Patient Problems (1) Vascular dementia with behavior disturbance Current Visit: Yes Status: Acute Plan to address problem: Verbal prompting, verbal redirection, supportive care, benzodiazepine therapy as clinically indicated. (2) Cerebral atherosclerosis Current Visit: Yes Status: Acute Plan to address problem: Risk factor reduction therapy, antiplatelet therapy as clinically indicated. (3) Diabetes Current Visit: No Status: Acute Plan to address problem: Consistent carbohydrate diet, Accu-Chek, insulin protocol, hypoglycemia protocol (4) Hypertension Current Visit: No Status: Suspected Qualifiers: Hypertension type: essential hypertension Qualified Code(s): I10 - Essential (primary) hypertension Plan to address problem: Monitor blood pressure every shift, continue medical management. History Interval history: 69 YO Female with Vascular Dementia with Behavioral disturbance, Cerebral Atherosclerosis, DM, Bipolar Disorder admitted to [facility] for Psychiatric Stabilization. Pt resting comfortably. Pt denies pain. No reported nursing events. Hospitalist Physical - Constitutional Vitals: Temp Pulse Resp BP Pulse Ox 98.0 F 83 18 140/93 98 08/08/20 08:22 08/08/20 08:22 08/08/20 08:22 08/08/20 08:22 08/08/20 08:22 General appearance: Present: no acute distress, well-nourished, obese - EENT Eyes: Present: PERRL, EOM intact - Neck Neck: Present: supple - Respiratory Respiratory effort: normal Respiratory: bilateral: CTA - Cardiovascular Rhythm: regular Heart Sounds: Present: S1 & S2 - Extremities Extremities: no ischemia Peripheral Pulses: within normal limits - Abdominal General gastrointestinal: soft, non-tender, non-distended - Integumentary Integumentary: Present: clear, dry - Psychiatric Psychiatric: cooperative - Neurologic Neurologic: CNII-XII intact Results - Labs Labs: Laboratory Last Values POC Glucose 98 mg/dL (70-105) 08/08/20 08:26 Hemoglobin A1c 5.5 % (4-6) 07/30/20 09:09 Triglycerides 82 mg/dL (2-149) 07/30/20 09:09 Cholesterol 150 mg/dL (50-199) 07/30/20 09:09 LDL Cholesterol Direct 103 mg/dL (50-130) 07/30/20 09:09 HDL Cholesterol 40 mg/dL (40-59) 07/30/20 09:09 Cholesterol/HDL Ratio 3.75 % 07/30/20 09:09 TSH 1.490 mlU/mL (0.270-4.200) 07/30/20 09:09 Valproic Acid < 2.8 ug/mL (50-100) L 07/30/20 09:09 Herman/IV: Voiding Method Toilet Active Medications - Current Medications Current Medications: Generic Name Dose Route Start Last Admin Trade Name Freq PRN Reason Stop Dose Admin Clonidine HCl 0.2 mg 08/04/20 13:00 08/04/20 17:01 Clonidine Tts 0.2 Mg/24 Hr Patch TD Not Given Fr TETO Diltiazem HCl 60 mg 08/03/20 22:00 08/08/20 09:35 Diltiazem 60 Mg Tab PO 60 mg BID TETO Administration Haloperidol Lactate 5 mg 08/06/20 09:17 08/07/20 11:50 Haloperidol Lactate 5 Mg/1 Ml Inj IM 5 mg Q6H PRN Administration Agitation Quetiapine Fumarate 200 mg 08/01/20 22:00 08/08/20 00:01 Quetiapine 200 Mg Tab PO Not Given QHS TETO Risperidone 1 mg 08/05/20 10:00 08/08/20 09:38 Risperidone 1 Mg Tab PO 1 mg BID TETO Administration Trazodone HCl 50 mg 07/23/20 22:00 08/08/20 00:01 Trazodone 50 Mg Tab PO Not Given QHS TETO Valproic Acid 500 mg 08/05/20 10:00 08/08/20 09:39 Valproic Acid 250 Mg/5 Ml Oral Liqd PO 500 mg BID TETO Administration Nutrition/Malnutrition Assess - Dietary Evaluation Nutrition/Malnutrition Findings: Nutrition Notes Start: 07/28/20 07:29 Freq: Status: Active Protocol: Document 07/28/20 07:29 LP (Rec: 07/28/20 07:29 LP [id number]) Nutrition Notes Need for Assessment generated from: LOS Initial or Follow up Brief Note Subjective/Other Information Consult for LOS. Pt consuming 100% of meals. Nutrition Intervention Revisit per MD consult or patient Sign Off request:
[2020-08-08] MEDS: HALOPERIDOL LACTATE 5 MG/1 ML INJ IM PRN (22:21)
--- NOTE | 2020-08-09 08:57 | Discharge Summary ---
Providers - Providers Date of Admission: 07/23/20 13:42 Date of discharge: 08/09/20 Attending physician: RICK GREENWOOD MD 07/23/20 14:47 Consult to Physician [CONS] Routine Comment: Consulting Provider: GILL DESAI Physician Instructions: Reason For Exam: manage medical conditions Primary care physician: BUCKY ALCANTAR Hospitalization Reason for admission: psychosis Admitting Diagnosis: F31.63 - BIPOLAR DISORD, CRNT EPSD MIXED, SEVERE, W/O PSYCH FEATURES Hospital course: The patient was provided inpatient psychiatric treatment with safe and supportive care, medication adjustment, adverse effect monitoring, medical evaluations, medical treatments, assessment and psycho-education. The patient's mood, cognition, behavior, moral support are improved and stabilized. St the time of discharge, the patient had no endangering behavior and no debilitating adverse effects. The patient agreed on potential consequences of no treatment and gave informed consent. Disposition: DC- TO HOME OR SELFCARE Time spent for discharge: 38 Allergies/Adverse Reactions: Allergies Sulfa (Sulfonamide Antibiotics) Allergy (Verified 07/26/19 19:41) Rash Vital Signs: Last Vital Signs Temp 98.0 F 08/08/20 20:21 Pulse 94 H 08/08/20 21:23 Resp 17 08/08/20 20:21 BP 177/101 08/08/20 21:23 Pulse Ox 99 08/08/20 20:21 Last Lab: Laboratory Last Values POC Glucose 98 mg/dL (70-105) 08/08/20 08:26 Hemoglobin A1c 5.5 % (4-6) 07/30/20 09:09 Triglycerides 82 mg/dL (2-149) 07/30/20 09:09 Cholesterol 150 mg/dL (50-199) 07/30/20 09:09 LDL Cholesterol Direct 103 mg/dL (50-130) 07/30/20 09:09 HDL Cholesterol 40 mg/dL (40-59) 07/30/20 09:09 Cholesterol/HDL Ratio 3.75 % 07/30/20 09:09 TSH 1.490 mlU/mL (0.270-4.200) 07/30/20 09:09 Valproic Acid < 2.8 ug/mL (50-100) L 07/30/20 09:09 Core Measure Documentation - Palliative Care Palliative Care/ Comfort Measures: Not Applicable - Core Measures Any of the following diagnoses?: none Exam - Constitutional Vitals: Temp Pulse Resp BP Pulse Ox 98.0 F 94 H 17 177/101 99 08/08/20 20:21 08/08/20 21:23 08/08/20 20:21 08/08/20 21:23 08/08/20 20:21 General appearance: Present: no acute distress - EENT Eyes: Present: PERRL, EOM intact ENT: hearing intact, clear oral mucosa - Neck Neck: Present: supple, normal ROM - Respiratory Respiratory effort: normal Plan Activity: advance as tolerated Weight Bearing Status: Weight Bear as Tolerated Care Plan Goals: maintain good and stable mental health Plan of Treatment: The patient should be compliant with medications, not to use drugs, and not to drink alcohol. The patient understands that if suicidal ideas, homicidal ideas or any endangering feeling arise, the patient should seek assistance including, but not limited to crisis hotline, and emergency room. Assessment: Bipolar Disorder Follow up with: BUCKY ALCANTAR MD [Primary Care Provider] - 7 Days Prescriptions: traZODone [Desyrel] 50 mg PO QHS #30 tablet QUEtiapine [SEROquel] 200 mg PO QHS #30 tablet VALPROIC ACID Liq [DepaKENE Liq] 500 mg PO BID #120 oral.liqd risperiDONE [RisperDAL] 1 mg PO BID #60
--- NOTE | 2020-08-09 09:25 | Event Note ---
Date: 08/09/20 Spoke with the patient's daughter, Naima concerning the patient's progress and discharge plans. Also discussed the patient's treatment plan and benefits of meds as well as SE, and importance of complying with medical regimen. Naima says her mother doesn't really want to take the injection because she "had a normal life on the pills when she was on them." She says her mother stated the injection made her tired. I advised her that I would give the prescription for the second dose, and they can follow up with her outpatient psychiatrist and further discuss options. She verbalized agreement and understanding.
[2020-08-09] MEDS: risperiDONE 1 MG TAB PO SCH (10:14)
[2020-08-09] MEDS: VALPROIC ACID 250 MG/5 ML ORAL LIQD PO SCH (10:14)
[2020-08-09] MEDS: dilTIAZem 60 MG TAB PO SCH (10:32)
[2020-08-09 10:33] VITALS: BP 120/93
[2020-08-09] MEDS: HALOPERIDOL LACTATE 5 MG/1 ML INJ IM PRN (10:37)
== END 2020-08-09 11:30 | disposition home or self-care (01) | DRG 885 ==
LOC: 5A 13:42
PROVIDERS: ADMIT Psychiatry & Neurology Psychiatry; ATTEND Psychiatry & Neurology Psychiatry
DX: F31.63 Bipolar disorder, current episode mixed, severe, without psychotic features (principal); F01.51 Vascular dementia, unspecified severity, with behavioral disturbance; E11.9 Type 2 diabetes mellitus without complications; E66.9 Obesity, unspecified; I67.2 Cerebral atherosclerosis; I10 Essential (primary) hypertension; Z88.2 Allergy status to sulfonamides; Z79.899 Other long term (current) drug therapy; Z68.37 Body mass index [BMI] 37.0-37.9, adult
CPT/HCPCS: 36415; 80048; 80061; 80164; 80320; 82962; 83036; 84443; 85025; G0378; G0480; J1630; J2426; J3486

== ENCOUNTER 2021-05-13 17:26 | Emergency (ER) | payer MEDICARE ==
--- NOTE | 2021-05-13 19:07 | Emergency Department Report ---
HPI - General Chief Complaint: Psych Time Seen by Provider: 05/13/21 18:18 - HPI HPI: This is a 70-year-old -[place] female who presents to the emergency department, brought in by family, for a mental health evaluation. Patient has been here 2 times previously and has a past medical history of hypertension and diabetes, and has a psychiatric history of bipolar disorder. The patient says that she does not know why she was brought into the emergency department this evening and says that she was tricked by her family who said that they needed to go to the emergency department because her grandson is on drugs. I spoke to the patient's daughter and who stated that she is having an exacerbation of her bipolar disorder. She has been displaying some paranoia and has been making many poor decisions. Last night the patient took the family car without telling anybody else and drove away and they were unable to figure out where she was or find her until they were called by a [facility] trooper this morning towards the border [place]. When the patient was brought into the emergency department to the registration desk, the patient suddenly urinated on herself and then started showing some random pictures to the registration staff. She denies any hallucinations, suicidal or homicidal ideations. Family says that they do not believe that she has been compliant with her medications. ED Past Medical Hx - Past Medical History Previous Medical History?: Yes Hx Diabetes: Yes Hx Renal Disease: No Hx Arthritis: No Hx Seizures: No Hx Psychiatric Treatment: Yes (Recently Bipolar) Hx Dementia: No - Surgical History Hx Cholecystectomy: No Hx Appendectomy: No - Social History Smoking Status: Never Smoker Substance Use Type: None (Denies illicit drug use) - Medications Home Medications: Home Medications Medication Instructions Recorded Confirmed Last Taken Type Paliperidone Palmitate [Invega 156 mg IM ONCE #1 ml 08/09/20 Unknown Rx Sustenna] QUEtiapine [SEROquel] 200 mg PO QHS #30 tablet 08/09/20 Unknown Rx VALPROIC ACID Liq [DepaKENE Liq] 500 mg PO BID #120 oral.liqd 08/09/20 Unknown Rx cloNIDine-TTS PATCH [Catapres-Tts 0.2 mg TD Fr patch 08/09/20 Unknown Rx 0.2mg Patch] dilTIAZem [Cardizem] 60 mg PO BID tablet 08/09/20 Unknown Rx risperiDONE [RisperDAL] 1 mg PO BID #60 08/09/20 Unknown Rx traZODone [Desyrel] 50 mg PO QHS #30 tablet 08/09/20 Unknown Rx ED Review of Systems ROS: Stated complaint: PYSCH EVALUATION Other details as noted in HPI Comment: All other systems reviewed and negative Constitutional: denies: chills, fever Respiratory: denies: cough, shortness of breath Cardiovascular: denies: chest pain, palpitations Gastrointestinal: denies: abdominal pain, vomiting Musculoskeletal: denies: back pain, arthralgia Neurological: denies: headache, weakness Psychiatric: denies: homicidal thoughts, suicidal thoughts Physical Exam - Physical Exam Physical Exam: GENERAL: The patient is well-developed well-nourished. HENT: Normocephalic. Atraumatic. Patient has moist mucous membranes. EYES: Extraocular motions are intact. NECK: Supple. Trachea is midline. CHEST/LUNGS: Clear to auscultation. There is no respiratory distress noted. HEART/CARDIOVASCULAR: Regular. There is no tachycardia. There is no murmur. ABDOMEN: Abdomen is soft, nontender. Patient has normal bowel sounds. SKIN: Skin is warm and dry. NEURO: The patient is awake, alert. The patient has no focal neurologic deficits. No slurred speech. MUSCULOSKELETAL: There is no tenderness or deformity. There is no limitation range of motion. PSYCH: Patient has pressured speech. She is paranoid. She has some tangential thoughts. ED Medical Decision Making - Lab Data Result diagrams: 05/13/21 19:07 05/13/21 19:07 Lab Results 05/13/21 05/13/21 05/13/21 Range/Units 19:07 19:07 19:07 WBC 11.0 (4.5-11.0) K/mm3 RBC 5.49 H (3.65-5.03) M/mm3 Hgb 12.4 (10.1-14.3) gm/dl Hct 40.6 (30.3-42.9) % MCV 74 L (79-97) fl MCH 23 L (28-32) pg MCHC 31 (30-34) % RDW 14.3 (13.2-15.2) % Plt Count 433 (140-440) K/mm3 Lymph % (Auto) 18.6 (13.4-35.0) % [place] % (Auto) 6.9 (0.0-7.3) % Eos % (Auto) 0.6 (0.0-4.3) % Baso % (Auto) 1.1 (0.0-1.8) % Lymph # (Auto) 2.0 (1.2-5.4) K/mm3 [place] # (Auto) 0.8 (0.0-0.8) K/mm3 Eos # (Auto) 0.1 (0.0-0.4) K/mm3 Baso # (Auto) 0.1 (0.0-0.1) K/mm3 Seg Neutrophils % 72.8 H (40.0-70.0) % Seg Neutrophils # 8.0 H (1.8-7.7) K/mm3 Sodium 142 (137-145) mmol/L Potassium 3.7 (3.6-5.0) mmol/L Chloride 104.5 (98-107) mmol/L Carbon Dioxide 24 (22-30) mmol/L Anion Gap 17 mmol/L BUN 13 (7-17) mg/dL Creatinine 0.7 (0.6-1.2) mg/dL Estimated GFR > 60 ml/min BUN/Creatinine Ratio 19 % Glucose 130 H (65-100) mg/dL Calcium 9.5 (8.4-10.2) mg/dL Plasma/Serum Alcohol < 0.01 (0-0.07) % - Medical Decision Making The patient was sent in by her family for a mental health evaluation. The patient denies having any psychiatric history but has been seen here twice in the past for a mental health evaluation and appears to have a history of bipolar disorder. Family says that she has been acting erratically at home and last night took off with the family car, without telling anybody, and was found without ID or money near the [place] border after she was stopped by commercial real estate sales manager's. On examination she has some pressured speech and is easily agitated. For all these reasons the patient has been placed on a 1013. She has been seen by the psychiatric process eng who agrees for the plan for inpatient stabilization. Initially she was refusing for her blood to be drawn but did eventually agree. When she went for the urine sample she appears to have filled up the cup with water from the sink. Her blood work has thus far been unremarkable pending CBC, metabolic panel and negative blood alcohol level. We still need the urine sample for urinalysis and UDS and if the patient has UTI antibiotics will be added. However I do not feel that the lack of urine at this time precludes her from a psychiatric admission and I feel the patient is medically cleared. Critical Care Time: No Critical care attestation.: If time is entered above; I have spent that time in minutes in the direct care of this critically ill patient, excluding procedure time. ED Disposition Clinical Impression: Bipolar disorder, curr episode mixed, severe, with psychotic features, Acute psychosis Disposition: 30 STILL A PATIENT Is pt being admited?: No Condition: Stable Time of Disposition: 01:07
[2021-05-13 19:38] LABS: Basophils # (Auto) 0.1 K/mm3 (0.0-0.1); Basophils % (Auto) 1.1 % (0.0-1.8); Eosinophils # (Auto) 0.1 K/mm3 (0.0-0.4); Eosinophils % (Auto) 0.6 % (0.0-4.3); Lymphocytes % (Auto) 18.6 % (13.4-35.0); Mean Corpuscular HGB Conc 31 % (30-34); Mean Corpuscular Volume 74 fl (79-97); Monocytes # (Auto) 0.8 K/mm3 (0.0-0.8); Monocytes % (Auto) 6.9 % (0.0-7.3); Platelet Count 433 K/mm3 (140-440); Red Blood Count 5.49 M/mm3 (3.65-5.03); Red Cell Distribution Width 14.3 % (13.2-15.2)
[2021-05-13 19:46] LABS: Blood Urea Nitrogen 13 mg/dL (7-17); Calcium 9.5 mg/dL (8.4-10.2); Hemolysis Index 4
[2021-05-13 19:50] LABS: BUN/Creatinine Ratio 19
[2021-05-13 19:51] LABS: Hematocrit 40.6 % (30.3-42.9); Hemoglobin 12.4 gm/dl (10.1-14.3)
--- NOTE | 2021-05-14 09:13 | Consultation ---
History of Present Illness - Reason for Consult Consult date: 05/14/21 Reason for consult: psychosis, hx of bipolar - History of Present Psychiatric Illness The patient was seen today. She is sitting on the chair. She is shaking. She looks and acts bizarre. The patient is whispering. She is responding to internal stimuli. She tells me she can't talk to me because she is eating breakfast. But the patient is sitting there looking at the napkin in her hand bizarrely. She appears to be seeing and hearing things. She is pointing and looking at the espinoza. She is rocking and shaking, and looks at me and points to her mouth. Due to the patient being acutely psychotic, I could not further engage her in the interview. PAST PSYCHIATRIC HISTORY: Unable to assess PAST MEDICAL HISTORY: None reported Family Psychiatric History: None reported or documented SOCIAL HISTORY Unable to assess REVIEW OF SYSTEMS Unable to assess MENTAL STATUS EXAMINATION General Appearance and Behavior: Age appropriate, good hygiene, not wearing appropriate clothes, bizarre, shaking Cooperation: Participating, uncooperative at times Psychomotor Behavior: Psychomotor normal Mood: Affect and affective range: restricted Thought Process: illogical, responding to internal stimuli Speech: whispering Thought Content Suicidal Ideation: Homicidal Ideation: Hallucinations: A/V Delusions: Yes Impulse Control: Limited Insight and Judgment: Impaired insight and judgment Memory: Impaired Attention: Divided attention impaired Orientation: Assessment and Plan (1) Bipolar Disorder Current Visit: Yes Status: Acute Treatment Plan 1013 Start Risperidone 1mg po BID Start Klonopin 0.25mg po BID x 3 days Start Trazodone 50mg po qhs Medical: per primary Disposition: Recommend acute psychiatric inpatient treatment Will follow. Thanks. Case staffed with Dr. Yao. Medications and Allergies Allergies Allergy/AdvReac Type Severity Reaction Status Date / Time Sulfa (Sulfonamide Allergy Rash Verified 07/26/19 19:41 Antibiotics) Home Medications Medication Instructions Recorded Confirmed Last Taken Type Paliperidone Palmitate [Invega 156 mg IM ONCE #1 ml 08/09/20 Unknown Rx Sustenna] QUEtiapine [SEROquel] 200 mg PO QHS #30 tablet 08/09/20 Unknown Rx VALPROIC ACID Liq [DepaKENE Liq] 500 mg PO BID #120 oral.liqd 08/09/20 Unknown Rx cloNIDine-TTS PATCH [Catapres-Tts 0.2 mg TD Fr patch 08/09/20 Unknown Rx 0.2mg Patch] dilTIAZem [Cardizem] 60 mg PO BID tablet 08/09/20 Unknown Rx risperiDONE [RisperDAL] 1 mg PO BID #60 08/09/20 Unknown Rx traZODone [Desyrel] 50 mg PO QHS #30 tablet 08/09/20 Unknown Rx Mental Status Exam - Vital signs Last Vital Signs Temp 99.1 F 05/13/21 20:01 Pulse 103 H 05/13/21 20:01 Resp 18 05/13/21 20:01 BP 146/93 05/13/21 20:01 Pulse Ox 97 05/14/21 08:46 Results Result Diagrams: 05/13/21 19:07 05/13/21 19:07 Abnormal lab results 05/13/21 05/13/21 Range/Units 19:07 19:07 RBC 5.49 H (3.65-5.03) M/mm3 MCV 74 L (79-97) fl MCH 23 L (28-32) pg Seg Neutrophils % 72.8 H (40.0-70.0) % Seg Neutrophils # 8.0 H (1.8-7.7) K/mm3 Glucose 130 H (65-100) mg/dL All other labs normal.
[2021-05-14] MEDS ORDERED: clonazePAM 0.5 MG TAB PO SCH (10:00)
[2021-05-14] MEDS ORDERED: risperiDONE 1 MG TAB PO SCH (10:00)
[2021-05-14 11:00] LABS: Bilirubin,Urine NEG (Negative); Blood,Urine MOD (Negative); Color,Urine Yellow (Yellow); Protein,Urine <15 mg/dL mg/dL (Negative); Urobilinogen,Urine < 2.0 mg/dL (<2.0)
[2021-05-14 11:19] LABS: WBC,Urine < 1.0 /HPF (0.0-6.0)
--- NOTE | 2021-05-14 11:30 | Emergency Department Report ---
Blank Doc - Documentation Documentation: Patient is decompensated from her bipolar disease and acutely psychotic. She has been medically cleared. We are awaiting psychiatric admission.
[2021-05-14 12:33] LABS: Amphetamine Screen,Urine Negative; Benzodiazepines Screen,Urine Negative; Cannabinoid Screen,Urine Negative; Cocaine Screen,Urine Negative; Methadone Screen,Urine Negative; Opiate Screen,Urine Negative
[2021-05-14 13:10] VITALS: BP 123/92
[2021-05-14] MEDS ORDERED: traZODone 50 MG TAB PO SCH (22:00)
== END 2021-05-14 13:10 | disposition still patient (30) ==
LOC: ED 17:26
DX: F31.60 Bipolar disorder, current episode mixed, unspecified (principal); F23 Brief psychotic disorder; Z20.822 Contact with and (suspected) exposure to COVID-19; E11.9 Type 2 diabetes mellitus without complications; Z88.2 Allergy status to sulfonamides; Z79.899 Other long term (current) drug therapy
CPT/HCPCS: 36415; 80048; 80307; 81001; 85025; 99285; U0003; 80320; G0480